=== PATIENT | female | born 1945 | race Caucasian/White ===

== ENCOUNTER → 2017-02-01 | Day surgery (SDC) | payer OTHER ==
[2017-01-12 10:04] VITALS: Ht 171.5 cm; Wt 63.6 kg
[~2017-02-01] VITALS: Ht 171.5 cm; Wt 63.6 kg
[~2017-02-01] MED LIST: 500ML BSS 0.3ML EPI 1:1000PF IRRIG ONE; ACETAMINOPHEN 325 MG TAB PO PRN; AMIT25TA9 PO; AMVISC PLUS 0.8ML SYRINGE INT OCU ONE; ASCO-63 PO; ASPCH81X PO; ATROPINE SULFATE 0.1 MG/ML 5ML SYR IV PRN; BSS FLUSH ONE; CRAN500C2 PO; CYAN100020 PO; EpHEDrine SULFATE INJ 50 MG/ML AMP IV PRN; EpINEphrine INJ 1MG/ML AMP 1 MG/ML AMP ONE; FAMO20TA9 PO; FOLI1TAB7 PO; GARL10007 PO; LACTATED RINGER'S 1000ML 500 ML IV SCH; LIDOCAINE 3.5% OPH GEL PER APPLICATION CHARGE ONE; LIDOCAINE HCL 1% MPF 2 ML VIAL ONE; LORA-741 PO; MIDAZOLAM HCL 1 MG/ML 2ML VIAL ONE; MISC1TAB PO; OCUCOAT 1 ML SOLN IO ONE; OMEG10007 PO; PHENYLEPHRINE HCL 10% OP SOLN PER DROP CHARGE OPL SCH; PHENYLEPHRINE HCL 10% OP SOLN PER DROP CHARGE OPR SCH; POVIDONE-IODINE OP SOLN 30 ML BTL ONE; PROPARACAINE 0.5% OP SOLN PER DROP CHARGE OPL SCH; RIZA10TA18 PO; SIMV40TA4 PO; TOBRAMYCIN/DEXAMETHASONE OPH OINT PER APPLN CHARGE ONE; TOPI100T20 PO; VALA500T60 PO; [UNRECOGNIZED DRUG - REMARK] SCH
[2017-02-01] MEDS: PHENYLEPHRINE HCL 2.5% OP SOLN PER DROP CHARGE OPL SCH ×2 (12:09→12:14)
[2017-02-01] MEDS: TROPICAMIDE 1% OP SOLN PER DROP CHARGE OPL SCH ×2 (12:10→12:15)
[2017-02-01] MEDS: CYCLOPENTOLATE HCL 1% OP SOLN PER DROP CHARGE OPL SCH ×2 (12:11→12:16)
[2017-02-01] MEDS: KETOROLAC 0.5% OP SOLN PER DROP CHARGE OPL SCH ×2 (12:12→12:17)
[2017-02-01] MEDS: GATIFLOXACIN OP SOLN PER DROP CHARGE OPL SCH ×2 (12:13→12:23)
--- NOTE | 2017-02-01 12:16 | History & Physical Bridge - [place] ---
H&P Re-Evaluation Bridge Note: I have examined the patient, reviewed the History & Physical and in the interval since the performance of the History & Physical I have noted the following changes of clinical significance: Diagnosis: Right Cataract Procedure: Right Cataract Removal with Lens Implant No changes noted
--- NOTE | 2017-02-01 13:28 | Discharge Instructions-SurgCtr ---
Discharge Instructions Date of Service Feb 01, 2017. Visit Reason for Visit: Cataract Right Eye Discharge Discharge Diagnosis / Problem: cataract Discharge Goals Goal(s): Improve function Activity Recommendations Activity Limitations: per Instructions/Follow-up section Anesthesia . Post Anesthesia Instructions: If you have had General Anesthesia or IV Sedation: * Do not drive today. * Resume driving when surgeon permits. * Do not make important decisions or sign legal documents today. * Call surgeon for: 1. Temperature elevations greater than 101 degrees F. 2. Uncontrollable pain. 3. Excessive bleeding. 4. Persistent nausea and vomiting. 5. Medication intolerance (nausea, vomiting or rash). * For nausea and vomiting use only clear liquids such as: tea, soda, bouillon until nausea subsides, then gradually increase diet as tolerated. * If you have any concerns or questions, call your surgeon's office. If physician is unavailable and it is an emergency, call 911 or go to the nearest emergency room. . Instructions / Follow-Up Instructions / Follow-Up ACTIVITY RECOMMENDATIONS: * No strenuous lifting, jogging or running for 4 days * No swimming or yard work for 1 week. * Limited bending is permitted, such as putting on shoes. RETURN TO SCHOOL/WORK: No work until seen by physician in office. MEDICATIONS: Resume previous medications unless instructed otherwise by your surgeon. This includes eye drops for glaucoma. Zymaxid/Gatifloxacin (kelly cap) - one drop every 2 hours until bedtime Nevanac/Ilevro/Prolensa/Ketorolac (villafuerte cap) - one drop every 4 hours until bedtime Prednisolone (white/pink cap, SHAKE WELL) - one drop every 2 hours until bedtime Starting tomorrow - all 3 drops every 4 hours until seen in the office Optive drops - as needed for discomfort SPECIAL CARE INSTRUCTIONS: * Wear eyeshield when sleeping, for four nights. * You may wear your own glasses or sunglasses while awake. * You may read or watch TV * You may shower and wash your face, but be gentle around the eye and pat dry. * Blurry vision and mild irritation are normal. * Call office if pain is more severe or vision becomes dark at . FOLLOW UP VISIT: Follow-up with Dr Whalen tomorrow. Diet Recommendations Home Diet: resume previous diet Procedures Procedures Performed: Right Eye Cataract Phacoemulsification With Intraocular Lens Implant Pending Studies Studies pending at discharge: no Medical Emergencies . Who to Call and When: Medical Emergencies: If at any time you feel your situation is an emergency, please call 911 immediately. . Non-Emergent Contact Non-Emergency issues call your: Benefits Consultant . . "Provider Documentation" section prepared by Jose Whalen.
[2017-02-01 13:30] VITALS: TEMP 36.7
--- NOTE | 2017-02-01 13:30 | [facility] Operative Report ---
Operative Report Date of Service Feb 01, 2017. Operative Report 1. PREOPERATIVE DIAGNOSIS: Cataract of the right eye. 2. POSTOPERATIVE DIAGNOSIS: Same. 3. PROCEDURE: Phacoemulsification with intraocular lens implantation of the right eye. SURGEON: Dr. Jose Whalen. ANESTHESIA: Topical Lidocaine gel, 1% Non- Preserved intracameral Lidocaine, and monitored intravenous sedation. INDICATIONS FOR THE PROCEDURE: The patient is a 71 - year-old female with a history of cataract of the right eye causing significant visual impairment. The details of the proposed procedure were explained to the patient who asked appropriate questions and following discussion of all risks, benefits and alternatives agreed to have the procedure done. 4. OPERATION AND FINDINGS: DESCRIPTION OF PROCEDURE: After informed consent was obtained, the patient was brought to the Operating Room at the [facility]. The patient was placed in a supine position and then the right eye was prepped and draped in the usual sterile fashion for intraocular surgery. A drop of topical Lidocaine gel was placed in the operative eye. A wire lid speculum was then placed in the fornices. A corneal paracentesis was then created temporally. The Non-Preserved Lidocaine was then instilled into the anterior chamber. The anterior chamber was then pressurized with viscoelastic. A 2.0 mm clear corneal incision was then created temporally. A cystotome was inserted into the anterior chamber and used to create a tear in the anterior lens capsule. This capsular tear was then used to create a small flap and the flap was dragged in a counterclockwise direction in order to create a continuous curvilinear capsulorrhexis. Hydrodissection was accomplished with balanced salt solution. Phacoemulsification of the lens nucleus was then performed in a standard [id number] technique. The phaco time was 28 seconds with an average power of 4 %. The remaining cortical material was removed using irrigation aspiration. The capsular bag was then filled with viscoelastic. A Kash [id number] +36.0 diopters lens was then loaded into the injector and injected into the capsular bag. The remaining viscoelastic was removed with the irrigation aspiration handpiece. The wound was hydrated and then checked and found to be watertight. Resure was used to assure a water tight incision. The intraocular pressure was checked and found to be adequate. The wire lid speculum was removed and the patient's face was cleaned and dried. TobraDex ointment was placed in the inferior fornix. The patient was discharged to the Recovery Room having tolerated the procedure well. There were no complications. The patient will be seen tomorrow in the office for follow-up. I attest to the content of the Intraoperative Record and any orders documented therein. Any exceptions are noted below.
[2017-02-01 13:58] VITALS: BP 130/84; PULSE 67; O2SAT 99
--- NOTE | 2017-02-01 13:58 | Anesthesia Progress Nt - [facility] ---
Anesthesia Post Op Note Date & Time Feb 01, 2017 at 13:57 Vital Signs Pain Intensity: 0 Vital Signs Past 12 Hours Date Time Temp Pulse Resp B/P Pulse Ox O2 Delivery O2 Flow Rate FiO2 02/01/17 13:30 36.7 70 16 145/85 96 Room Air 02/01/17 12:00 36.5 76 16 145/88 99 Room Air Notes Mental Status: alert / awake / arousable, participated in evaluation Pt Amnestic to Procedure: Yes Nausea / Vomiting: adequately controlled Pain: adequately controlled Airway Patency, RR, SpO2: stable & adequate BP & HR: stable & adequate Hydration State: stable & adequate Anesthetic Complications: no major complications apparent
== END | disposition home or self-care (01) ==
LOC: X.SURG 10:30
PROVIDERS: ATTEND Ophthalmology
DX: H26.9 Unspecified cataract (principal); H54.7 Unspecified visual loss; Z98.49 Cataract extraction status, unspecified eye; Z88.1 Allergy status to other antibiotic agents; Z88.2 Allergy status to sulfonamides

== ENCOUNTER → 2017-04-14 | Outpatient (CLI) | payer OTHER ==
[~2017-04-14] MED LIST changes: -500ML BSS 0.3ML EPI 1:1000PF IRRIG ONE; -ACETAMINOPHEN 325 MG TAB PO PRN; -AMVISC PLUS 0.8ML SYRINGE INT OCU ONE; -ATROPINE SULFATE 0.1 MG/ML 5ML SYR IV PRN; -BSS FLUSH ONE; -CRAN500C2 PO; -EpHEDrine SULFATE INJ 50 MG/ML AMP IV PRN; -EpINEphrine INJ 1MG/ML AMP 1 MG/ML AMP ONE; -FOLI1TAB7 PO; -LACTATED RINGER'S 1000ML 500 ML IV SCH; -LIDOCAINE 3.5% OPH GEL PER APPLICATION CHARGE ONE; -LIDOCAINE HCL 1% MPF 2 ML VIAL ONE; -MIDAZOLAM HCL 1 MG/ML 2ML VIAL ONE; -OCUCOAT 1 ML SOLN IO ONE; -PHENYLEPHRINE HCL 10% OP SOLN PER DROP CHARGE OPL SCH; -PHENYLEPHRINE HCL 10% OP SOLN PER DROP CHARGE OPR SCH; -POVIDONE-IODINE OP SOLN 30 ML BTL ONE; -PROPARACAINE 0.5% OP SOLN PER DROP CHARGE OPL SCH; -TOBRAMYCIN/DEXAMETHASONE OPH OINT PER APPLN CHARGE ONE; -[UNRECOGNIZED DRUG - REMARK] SCH
[2017-04-14 17:44] LABS: BASO % 1.4 %; BASO ABS # 0.09 K/uL (0-0.2); COMPLETE YES; EOS % 3.7 %; HEMATOCRIT 37.9 % (37-47); IG% 0.2 %; LYMPH ABS # 2.07 K/uL (1.2-3.4); MEAN CELL VOLUME 84.6 fL (80-100); MEAN CORPUSCULAR HEMOGLOBIN 26.8 pg (25-34); MEAN CORPUSCULAR HGB CONC 31.7 g/dl (32-36); MEAN PLATELET VOLUME 10.5 fL (7.4-10.4); MONO % 7.1 %; NEUT % 55.6 %; PLATELET COUNT 218 K/uL (130-400); RED BLOOD COUNT 4.48 M/uL (4.2-5.4); WHITE BLOOD COUNT 6.47 K/uL (4.8-10.8)
[2017-04-14 18:07] LABS: ALT/SGPT 27 U/L (12-78); AST/SGOT 18 U/L (15-37); BLOOD UREA NITROGEN 15 mg/dl (7-18); BUN/CREATININE RATIO 15.5 (10-20); CALCIUM 9.5 mg/dl (8.5-10.1); CARBON DIOXIDE 25 mmol/L (21-32); CHLORIDE 113 mmol/L (98-107); CHOLESTEROL 166 mg/dl (0-200); CREATININE 0.94 mg/dl (0.60-1.20); GLUCOSE 94 mg/dl (70-99); POTASSIUM 4.1 mmol/L (3.5-5.1); SODIUM 144 mmol/L (136-145)
[2017-04-14 18:18] LABS: ALB/GLOB RATIO 1.1 (0.9-2); ALKALINE PHOSPHATASE 37 U/L (45-117); CHOLESTEROL/HDL RATIO 2.6; HDL CHOLESTEROL 63 mg/dl; LDL CHOLESTEROL CALCULATED 81 mg/dl; TRIGLYCERIDES 111 mg/dl (0-150); VERY LOW DENSITY LIPOPROT CALC 22 mg/dl
== END | disposition home or self-care (01) ==
LOC: C.LABMFLN 14:05
PROVIDERS: ATTEND Family Medicine
DX: I10 Essential (primary) hypertension (principal); E78.00 Pure hypercholesterolemia, unspecified; E03.9 Hypothyroidism, unspecified

== ENCOUNTER → 2017-05-06 | Outpatient (CLI) | payer OTHER ==
--- NOTE | 2017-05-06 15:58 | MAMMOGRAPHY REPORT ---
BILATERAL DIGITAL SCREENING MAMMOGRAM WITH CAD: 05/06/2017 CLINICAL HISTORY: Routine screening. Patient has no complaints. TECHNIQUE: Current study was also evaluated with a Computer Aided Detection (CAD) system. Bilateral CC and MLO views were obtained. COMPARISON: Comparison is made to exams dated: 05/04/2016 mammogram, 04/21/2015 mammogram, 04/18/2014 m ammogram, 04/17/2013 mammogram, 04/14/2012 mammogram, and 04/13/2011 mammogram - [facility] enter. BREAST COMPOSITION: There are scattered areas of fibroglandular density in both breasts. FINDINGS: No suspicious masses, calcifications, or areas of architectural distortion are noted in ei ther breast. There has been no significant interval change compared to prior exams. Scattered bilater al benign-appearing calcifications are not significantly changed. Nodular asymmetry along the painter railroad car ior nipple line on the left cc view middle depth is stable compared to prior exams including the 2015 and 2014 exams. IMPRESSION: ACR BI-RADS CATEGORY 2: BENIGN There is no mammographic evidence of malignancy. A 1 year screening mammogram is recommended. The pa tient will receive written notification of the results. Approximately 10% of breast cancers are not detected with mammography. A negative mammographic report should not delay biopsy if a clinically suggestive mass is present. Keli Rodriguez M.D. /:05/06/2017 15:44:22 Director Dietetics Department: Jazzmine AVILEZ)(Linda), [facility] letter sent: Normal 1/2 BI-RADS Code: ACR BI-RADS Category 2: Benign
== END | disposition home or self-care (01) ==
LOC: C.MAMM 15:16
PROVIDERS: ATTEND Family Medicine
DX: Z12.31 Encounter for screening mammogram for malignant neoplasm of breast (principal)

== ENCOUNTER → 2018-05-10 | Outpatient (CLI) | payer OTHER ==
--- NOTE | 2018-05-11 08:11 | MAMMOGRAPHY REPORT ---
BILATERAL DIGITAL SCREENING MAMMOGRAM TOMOSYNTHESIS WITH CAD: 05/10/2018 CLINICAL HISTORY: Routine screening. Patient has no complaints. TECHNIQUE: The study was acquired using full field digital technology and interpreted from soft copy. 2D and Tomosynthesis (3D imaging) and was done in the CC and MLO projections. A C-view reconstructio n was then done. Current study was also evaluated with a Computer Aided Detection (CAD) system. COMPARISON: Comparison is made to exams dated: 05/06/2017 mammogram, 05/04/2016 mammogram, 04/21/2015 m ammogram, 04/18/2014 mammogram, 04/17/2013 mammogram, and 04/14/2012 mammogram - [facility] enter. BREAST COMPOSITION: There are scattered areas of fibroglandular density in both breasts. FINDINGS: No suspicious masses, calcifications, or areas of architectural distortion are noted in either breast . There has been no significant interval change compared to prior exams. Scattered bilateral benign-a ppearing calcifications are not significantly changed. IMPRESSION: There is no mammographic evidence of malignancy. A 1 year screening mammogram is recommended.( 019) The patient will receive written notification of the results. Approximately 10% of breast cancers are not detected with mammography. A negative mammographic report should not delay biopsy if a clinically suggestive mass is present. Keli Rodriguez M.D. /:05/10/2018 14:53:41 Staffing Executive: Princess Conner RT(Fritz)(M)(BD), [facility] letter sent: Normal 1/2 BI-RADS Code: ACR BI-RADS Category 2: Benign
== END | disposition home or self-care (01) ==
LOC: C.MAMM 14:28
PROVIDERS: ATTEND Family Medicine
DX: Z12.31 Encounter for screening mammogram for malignant neoplasm of breast (principal)

== ENCOUNTER 2020-07-28 08:47 | Inpatient (IN) ==
--- NOTE | 2020-07-14 09:23 | PAT Medication Instructions ---
Medication Instructions Date of Service July 14, 2020 Home Medications Medication Instructions Recorded rizatriptan 10 mg tablet 10 mg PO .COMPLEX PRN #12 tab MDD 3 01/31/20 lorazepam 0.5 mg tablet 0.5 mg PO BID PRN #180 tab 03/13/20 amitriptyline 25 mg tablet 25 mg PO HS #90 tab 04/28/20 simvastatin 40 mg tablet 40 mg PO HS #90 tab 04/28/20 valacyclovir 1 gram tablet 1,000 mg PO .COMPLEX #12 tab 06/04/20 topiramate 100 mg tablet 100 mg PO BID #180 tab 06/20/20 ascorbic acid (vitamin C) 500 mg tablet 500 mg PO QAM cranberry 500 mg capsule 500 mg PO QAM cyanocobalamin (vitamin B-12) 1,000 mcg tablet 1,000 mcg PO QAM garlic 1,000 mg capsule 1,000 mg PO QAM glucosamine 750 [id number] 2-C 30 mg-D3 1,000 unit-carlos 1 mg tablet 2 tab PO QAM omega-3 fatty acids-fish oil 360 mg-1,200 mg capsule 1 cap PO QAM prednisolone acetate 1 % eye drops,suspension 1 drops OP QAM famotidine 20 mg tablet 40 mg PO BID rizatriptan 10 mg tablet 10 mg PO .COMPLEX PRN #12 tab MDD lorazepam 0.5 mg tablet 0.5 mg PO BID PRN amitriptyline 25 mg tablet 25 mg PO HS simvastatin 40 mg tablet 40 mg PO HS valacyclovir 1 gram tablet 1,000 mg PO .COMPLEX topiramate 100 mg tablet 100 mg PO BID lisinopril 2.5 mg PO QAM melatonin 5 mg PO HS PRN STOP taking 2 weeks before surgery (or as soon as possible if surgery is within 2 weeks) cranberry 500 mg capsule 500 mg PO QAM garlic 1,000 mg capsule 1,000 mg PO QAM glucosamine 750 [id number]-hysgzo-[id number] 2-C 30 mg-D3 1,000 unit-carlos 1 mg tablet 2 tab PO QAM omega-3 fatty acids-fish oil 360 mg-1,200 mg capsule 1 cap PO QAM DO NOT take the morning of surgery ascorbic acid (vitamin C) 500 mg tablet 500 mg PO QAM cyanocobalamin (vitamin B-12) 1,000 mcg tablet 1,000 mcg PO QAM lisinopril 2.5 mg PO QAM Take morning of surgery With a small sip of water, OTHERWISE NOTHING TO EAT OR DRINK AFTER MIDNIGHT: prednisolone acetate 1 % eye drops,suspension 1 drops OP QAM famotidine 20 mg tablet 40 mg PO BID rizatriptan 10 mg tablet 10 mg PO .COMPLEX PRN (if needed) lorazepam 0.5 mg tablet 0.5 mg PO BID PRN (if needed) valacyclovir 1 gram tablet 1,000 mg PO .COMPLEX (if needed) topiramate 100 mg tablet 100 mg PO BID Take evening before surgery famotidine 20 mg tablet 40 mg PO BID rizatriptan 10 mg tablet 10 mg PO .COMPLEX PRN (if needed) lorazepam 0.5 mg tablet 0.5 mg PO BID PRN (if needed) amitriptyline 25 mg tablet 25 mg PO HS simvastatin 40 mg tablet 40 mg PO HS topiramate 100 mg tablet 100 mg PO BID melatonin 5 mg PO HS PRN (if needed) valacyclovir 1 gram tablet 1,000 mg PO .COMPLEX (if needed) Other Notes If you have any questions please call us at [phone] or [phone] or [phone] or [phone]
--- NOTE | 2020-07-15 14:07 | Anesthesiology Consultation ---
Date of Service July 15, 2020 Assessment & Plan (1) Encounter for pre-operative examination: Per assessment on 07/15: Travel screen negative. No known COVID-19 positive cont acts or current COVID-19 related symptoms. Surgeon arranging preop COVID testing (scheduled 07/23; [facility]). Awaiting results. - Patient goes by "Nakia" Chart Review Chart Review: Acceptable Risk for Surgery (pending surgeon-ordered PCP clearance) and Patient seen in Pre Admission Testing Teaching & Discussion Pre-Anesthesia Teaching/Discussion Notes: Instructed NPO after midnight before surgery,except medications with 15 cc of water. Medication instructions provided according to the PAT guidelines. History Surgery Operation Date: 07/28/20 12:25 Proposed Procedures p L2-L3 Decompression and Fusion, Spinal Cord Monitoring - Yohan Russo DO Height/Weight Height: 5 ft 5.5 in Weight: 65.8 kg Allergies Allergy/AdvReac Type Severity Reaction Status Date / Time ciprofloxacin Allergy Unknown Unknown Verified 07/09/20 11:22 Sulfa (Sulfonamide AdvReac Unknown Back Pain Verified 07/14/20 16:13 Antibiotics) Medications Home Medications Medication Instructions Recorded Confirmed Last Taken ascorbic acid (vitamin C) 500 mg 500 mg PO QAM tab 04/12/19 07/09/20 Unknown tablet cranberry 500 mg capsule 500 mg PO QAM cap 05/04/19 07/09/20 Unknown cyanocobalamin (vitamin B-12) 1,000 mcg PO QAM tab 05/04/19 07/09/20 Unknown 1,000 mcg tablet garlic 1,000 mg capsule 1,000 mg PO QAM 05/04/19 07/09/20 Unknown glucosamine 750 fh-prepsb-jqu 2-C 2 tab PO QAM tab 05/04/19 07/09/20 Unknown 30 mg-D3 1,000 unit-carlos 1 mg tablet omega-3 fatty acids-fish oil 360 1 cap PO QAM 05/04/19 07/09/20 Unknown mg-1,200 mg capsule prednisolone acetate 1 % eye 1 drops OP QAM ml 05/04/19 07/09/20 Unknown drops,suspension famotidine 20 mg tablet 40 mg PO BID tab 11/19/19 07/09/20 Unknown rizatriptan 10 mg tablet 10 mg PO .COMPLEX PRN #12 tab MDD 3 01/31/20 07/09/20 Unknown lorazepam 0.5 mg tablet 0.5 mg PO BID PRN #180 tab 03/13/20 07/09/20 Unknown amitriptyline 25 mg tablet 25 mg PO HS #90 tab 04/28/20 07/09/20 Unknown simvastatin 40 mg tablet 40 mg PO HS #90 tab 04/28/20 07/09/20 Unknown valacyclovir 1 gram tablet 1,000 mg PO .COMPLEX #12 tab 06/04/20 07/09/20 Unknown topiramate 100 mg tablet 100 mg PO BID #180 tab 06/20/20 07/09/20 Unknown lisinopril 2.5 mg PO QAM 07/09/20 07/09/20 Unknown melatonin 5 mg PO HS PRN 07/09/20 07/09/20 Unknown Past Medical History Medical History GERD (gastroesophageal reflux disease) History of anxiety History of depression History of nephrolithiasis Hypercholesterolemia Hypertension Lumbar stenosis Migraines Osteoarthritis Recurrent cold sores Scoliosis Exercise / Class Metabolic Activity III < 4 Walking/Shop/Light housework Past Family History Family History Mother Pulmonary fibrosis Unknown Headache migraine headaches Cancer Father COPD (chronic obstructive pulmonary disease) Asthma Son No problems noted. Past Surgical History Surgical History History of cataract surgery History of colonoscopy History of corneal transplant History of esophagogastroduodenoscopy (EGD) History of tooth extraction Past Anesthesia History No Hx of Anesthesia Complications and No Family Hx of Anesthesia Complications History of PONV No Hx of PONV and No Hx of Motion Sickness Social History Smoking Status: Former smoker Do You Dip or Chew Tobacco: No Smoking End Date: Quit 12 years Hx Alcohol Use: Yes Alcohol type: wine alcohol intake frequency: a few times a month Hx Substance Use: No substance use type: does not use Review of Systems Patient denies chest pain, shortness of breath, fever, chills, cough, wheezing, palpitations. Physical Exam Vital Signs VITALS BP 125/80 P 84 TEMP 97.7 SP02 100%RA RESP 16 PHYSICAL Full neck and c-spine range of motion. Full TMJ range of motion. TMD 3 finger breaths Mallampati Score 3 Dentition: missing molars, + cap (upper left front/side tooth) Lungs: clear throughout to auscultation Cardiac: regular rate and rhythm, no murmurs noted Spine: normal Carotid arteries: negative bruit Extremities: no edema Testing Laboratory Results 07/15/20 14:36 07/15/20 14:36 PT 10.8 Seconds (9.0-12.0) 07/15/20 14:36 INR 1.0 (0.9-1.1) 07/15/20 14:36 APTT 27.6 Seconds (21.0-31.0) 07/15/20 14:36 Urine Color Yellow 07/15/20 14:36 Urine Appearance Clear (Clear) 07/15/20 14:36 Urine pH 6.5 (4.5-7.5) 07/15/20 14:36 Ur Specific [place] 1.012 (1.000-1.030) 07/15/20 14:36 Urine Protein Negative (Negative) 07/15/20 14:36 Urine Glucose (UA) Negative (Negative) 07/15/20 14:36 Urine Ketones Negative (Negative) 07/15/20 14:36 Urine Nitrite Negative (Negative) 07/15/20 14:36 Ur Leukocyte Esterase Negative (Negative) 07/15/20 14:36 Blood Type O Positive 07/15/20 14:36 Antibody Screen NEGATIVE 07/15/20 14:36 Electrocardiogram Date: 07/15/20 NSR at 77bpm. RBBB. unconfirmed report. Chest X-Ray Date: 07/15/20 FINDINGS: The cardiac and mediastinal contours are normal. There is no evidence of focal pulmonary consolidation. There is no evidence of failure. No pleural effusions are visualized.[There is a mildly prominent left cardiophrenic angle fat pad. IMPRESSION: No active disease in the chest.
--- NOTE | 2020-07-15 15:53 | XRay Report ---
XR chest Pre-admission PA/Lat CLINICAL HISTORY: Preoperative chest COMPARISON STUDY: No previous studies for comparison. FINDINGS: The cardiac and mediastinal contours are normal. There is no evidence of focal pulmonary co nsolidation. There is no evidence of failure. No pleural effusions are visualized.[There is a mildly prominent left cardiophrenic angle fat pad. IMPRESSION: No active disease in the chest. ACT 112: Negative or not required by law. Electronically signed by: Jaquan Huggins M.D. 07/15/2020 3:51 PM
[2020-07-15 16:09] LABS: Basophils # (auto) 0.06 K/uL (0-0.2); Basophils % (auto) 0.9 %; Eosinophils # (auto) 0.11 K/uL (0-0.5); Eosinophils % (auto) 1.6 %; Hematocrit (blood only) 43.6 % (37-47); Hemoglobin 14.2 g/dL (12.0-16.0); Immature Granulocytes # (auto) 0.01 K/uL (0.00-0.02); Immature Granulocytes % (auto) 0.1 %; Lymphocytes # (auto) 1.85 K/uL (1.2-3.4); Lymphocytes % (auto) 26.6 %; Mean Corpuscular Hemoglobin 32.1 pg (25-34); Mean Corpuscular Hgb Conc 32.6 g/dL (32-36); Mean Corpuscular Volume 98.4 fL (80-100); Mean Platelet Volume 10.7 fL (7.4-10.4); Monocytes # (auto) 0.39 K/uL (0.11-0.59); Monocytes % (auto) 5.6 %; Neutrophils # (auto) 4.54 K/uL (1.4-6.5); Neutrophils % (auto) 65.2 %; Platelet Count 248 K/uL (130-400); RDW Coefficient of Variation 12.8 % (11.5-14.5); RDW Standard Deviation 46.3 fL (36.4-46.3); Red Blood Count 4.43 M/uL (4.2-5.4); White Blood Count 6.96 K/uL (4.8-10.8)
[2020-07-15 16:10] LABS: Appearance Urine Clear (Clear); Bilirubin Urine Negative (Negative); Blood Urine Negative (Negative); Color Urine Yellow; Glucose Urine UA Negative (Negative); Ketones Urine Negative (Negative); Leukocyte Esterase Urine Negative (Negative); Nitrite Urine Negative (Negative); Protein Urine Negative (Negative); Specific Gravity Urine 1.012 (1.000-1.030); Urobilinogen Urine Negative (Negative); pH Urine 6.5 (4.5-7.5)
[2020-07-15 16:20] LABS: BUN Creatinine Ratio 19.7 (10-20); Calcium 9.6 mg/dl (8.5-10.1); Creatinine Clr Calc Pharmacy 46.2 ml/min; Est GFR (African American) 65.9; Est GFR (Non-African American) 56.8
[2020-07-15 16:21] LABS: Partial Thromboplastin Time 27.6 Seconds (21.0-31.0); Prothrombin Time 10.8 Seconds (9.0-12.0)
--- NOTE | 2020-07-16 14:21 | Electrocardiogram Report ---
Test Reason : Blood Pressure : / mmHG Vent. Rate : 077 BPM Atrial Rate : 077 BPM P-R Int : 158 ms QRS Dur : 132 ms QT Int : 428 ms P-R-T Axes : 073 033 069 degrees QTc Int : 484 ms Normal sinus rhythm Right bundle branch block Abnormal ECG No previous ECGs available Confirmed by Emanuel Godoy ([id number]) on 07/16/2020 2:21:02 PM Referred By: Yohan Russo Confirmed By:Emanuel Godoy
[~2020-07-28 08:47] MED LIST changes: +ACETAMINOPHEN 500 MG TAB PO SCH; -AMIT25TA9 PO; -ASCO-63 PO; -ASPCH81X PO; +CEFAZOLIN 1000MG 1,000 MG/7.5 ML SYR IV SCH; -CYAN100020 PO; +CeleBREX 200 MG CAP PO SCH; -FAMO20TA9 PO; +GABAPENTIN 300 MG CAP PO SCH; -GARL10007 PO; -LORA-741 PO; +LR 15ML/HR IV SCH; -MISC1TAB PO; -OMEG10007 PO; -RIZA10TA18 PO; -SIMV40TA4 PO; -TOPI100T20 PO; -VALA500T60 PO
[2020-07-28] MEDS ORDERED: ATROPINE SULFATE 0.1 MG/ML 10ML SYR IV PRN (09:09)
[2020-07-28] MEDS ORDERED: ePHEDrine sulfate 50 MG/ML AMP IV PRN (09:09)
[2020-07-28] MEDS ORDERED: LABETALOL HCL IV 5 MG/ML 20ML IV PRN (09:09)
[2020-07-28] MEDS ORDERED: HYDROmorphone INJ 1 MG/ML SYRINGE IV PRN ×2 (09:09→13:52)
[2020-07-28] MEDS ORDERED: PHENYLEPHRINE 100MCG/ML 5ML SYR IV PRN (09:09)
[2020-07-28] MEDS ORDERED: ONDANSETRON INJ 2 MG/ML 2 ML VIAL IV PRN ×2 (09:09→13:52)
[2020-07-28] MEDS ORDERED: MEPERIDINE HCL 25 MG/ML CARP/VIAL IV PRN (09:09)
[2020-07-28] MEDS ORDERED: fentaNYL citrate 100 MCG/2 ML VIAL IV PRN (09:09)
[2020-07-28] MEDS ORDERED: MIDAZOLAM HCL 1 MG/ML 2ML VIAL ONE (09:21)
[2020-07-28] MEDS ORDERED: fentaNYL citrate 100 MCG/2 ML VIAL ONE (09:22)
--- NOTE | 2020-07-28 09:56 | History & Physical Bridge Note ---
Date of Service July 28, 2020 History & Physical Bridge Note I have examined the patient, reviewed the History & Physical and in the interval since the performance of the History & Physical I have noted the following changes of clinical significance: no changes noted
--- NOTE | 2020-07-28 09:57 | History & Physical Report ---
Date of Service July 28, 2020 Assessment & Plan (1) Neurogenic claudication due to lumbar spinal stenosis: Admission and Anticipated Discharge Date Admission Date: L2-L3 decompression fusion History of Present Illness Chief Complaint: Back and right leg pain Primary Care Provider: Yen Frost MD This is a 74-year-old female that presents with chronic persistent back and leg pain. After failing a course of nonoperative care is here for surgical intervention. Allergies Allergy/AdvReac Type Severity Reaction Status Date / Time ciprofloxacin Allergy Unknown Unknown Verified 07/28/20 09:22 Sulfa (Sulfonamide AdvReac Unknown Back Pain Verified 07/28/20 09:22 Antibiotics) Home Medications Home Medications Medication Instructions Recorded Confirmed Type ascorbic acid (vitamin C) 500 mg 500 mg PO QAM tab 04/12/19 07/28/20 History tablet cranberry 500 mg capsule 500 mg PO QAM cap 05/04/19 07/28/20 History cyanocobalamin (vitamin B-12) 1,000 mcg PO QAM tab 05/04/19 07/28/20 History 1,000 mcg tablet garlic 1,000 mg capsule 1,000 mg PO QAM 05/04/19 07/28/20 History glucosamine 750 [id number]-kpv 2-C 2 tab PO QAM tab 05/04/19 07/28/20 History 30 mg-D3 1,000 unit-carlos 1 mg tablet omega-3 fatty acids-fish oil 360 1 cap PO QAM 05/04/19 07/28/20 History mg-1,200 mg capsule prednisolone acetate 1 % eye 1 drops OP QAM ml 05/04/19 07/28/20 History drops,suspension famotidine 20 mg tablet 40 mg PO BID tab 11/19/19 07/28/20 History lorazepam 0.5 mg tablet 0.5 mg PO BID PRN #180 tab 03/13/20 07/28/20 Rx amitriptyline 25 mg tablet 25 mg PO HS #90 tab 04/28/20 07/28/20 Rx simvastatin 40 mg tablet 40 mg PO HS #90 tab 04/28/20 07/28/20 Rx valacyclovir 1 gram tablet 1,000 mg PO .COMPLEX #12 tab 06/04/20 07/21/20 Rx topiramate 100 mg tablet 100 mg PO BID #180 tab 06/20/20 07/28/20 Rx lisinopril 2.5 mg PO QAM 07/09/20 07/28/20 History melatonin 5 mg PO HS PRN 07/09/20 07/28/20 History rizatriptan 10 mg tablet 10 mg PO .COMPLEX PRN #12 tab MDD 2 07/17/20 07/28/20 Rx tramadol 50 mg tablet 50 mg PO Q8H PRN #30 tab 07/21/20 07/28/20 Rx acetaminophen [Tylenol Extra 1,000 mg PO Q6H PRN 07/28/20 07/28/20 History Strength] bisacodyl [Dulcolax (bisacodyl)] 5 mg PO DAILY PRN 07/28/20 07/28/20 History Past Med/Surg History Medical History (Updated 07/28/20 @ 09:57 by Yohan Russo DO) GERD (gastroesophageal reflux disease) History of anxiety History of depression History of nephrolithiasis Hypercholesterolemia Hypertension Lumbar stenosis Migraines Osteoarthritis Recurrent cold sores Right bundle branch block Scoliosis Surgical History History of cataract surgery History of colonoscopy History of corneal transplant History of esophagogastroduodenoscopy (EGD) History of tooth extraction Family History Mother Pulmonary fibrosis Unknown Headache migraine headaches Cancer Father COPD (chronic obstructive pulmonary disease) Asthma Son No problems noted. Social History Smoking Status: Former smoker Smoking End Date: Quit 12 years; Second Hand Exposure: Yes; Do You Dip or Chew Tobacco: No; Tobacco Cessation Education Requested by Patient: No Hx Alcohol Use: Yes Alcohol type: wine Alcohol Intake Frequency Comment: occassionally Hx Substance Use: No Preferred Language: Divehi Communication Ability: Effective Visual Impairment: No Limitations Hearing Ability: Normal Dry Transfer Man Required: No Beliefs That Will Affect Care: None marital status: Current Living Situation: Spouse current occupational status: retired Feels Safe at Home: Yes Safety Concerns: Feels Safe At This Time caffeine: Yes Dental Care, Regularly: Yes Physical Activity Frequency: Does not Exercise Seatbelt Use: always Sunscreen Use: Yes Assistive Devices: Cane and Glasses Physical Exam Physical Exam: Patient is alert and oriented neurologically intact. Heart regular rate and rhythm. Lungs clear to auscultation.
[2020-07-28] MEDS ORDERED: BUPIVACAINE/EPINEPHRINE 0.25% 1:200,000 30 ML VIAL ONE (10:11)
[2020-07-28] MEDS ORDERED: BACITRACIN INJ 50,000 UNIT VIAL ONE (10:11)
[2020-07-28] MEDS ORDERED: PROPOFOL IV EMULSION 10 MG/ML 20 ML VIAL IV ONE (10:41)
[2020-07-28] MEDS ORDERED: ROCURONIUM BROMIDE 10 MG/ML 5 ML VIAL IV ONE (10:41)
[2020-07-28] MEDS ORDERED: LIDOCAINE HCL 2% 2 ML VIAL/AMP(20MG/ML) INFIL ONE (10:41)
[2020-07-28] MEDS ORDERED: FLOSEAL HEMOSTATIC MATRIX 10ML TOP ONE ×2 (10:43→11:29)
[2020-07-28] MEDS ORDERED: NEOSTIGMINE METHYLSULFATE 1 MG/ML 10ML VIAL ONE (11:21)
[2020-07-28] MEDS ORDERED: GLYCOPYRROLATE 0.2 MG/ML VIAL ONE (11:21)
[2020-07-28] MEDS ORDERED: ONDANSETRON INJ 2 MG/ML 2 ML VIAL ONE (11:21)
[2020-07-28] MEDS ORDERED: DEXAMETHASONE SOD INJ 4 MG/ML VIAL ONE (11:21)
[2020-07-28] MEDS ORDERED: ePHEDrine sulfate 50 MG/ML SYR ONE (11:27)
--- NOTE | 2020-07-28 11:40 | Operative Report ---
Post Operative Report Pre & Post Diagnosis Operation Date: 07/28/20 10:05 Pre-Op Diagnosis: Lumbar Spinal Stenosis with Neurogenic Claudication Post-Op Diagnosis: Lumbar Spinal Stenosis with Neurogenic Claudication I identified the patient and participated in the time-out.: Yes Procedure Operation Date: 07/28/20 10:05 Actual Procedures #1 lumbar decompression with bilateral medial facetectomy and foraminotomies L2- 3. #2 posterior spinal fusion L2-3. #3 placement posterior instrumentation L2- 3. #4 interbody fusion L2-3. #5 placement peek cage and 7 x 22 mm at L2-3. #6 placement locally harvested morselized autograft in the posterior lateral gutters. #7 placement infuse collagen sponge plan master graft in the posterior lateral gutters and ostial amp interbody space. Surgeon Yohan Russo, Fiscal Agent Kanika Sanchez Estimated Blood Loss 100 Findings Consistent with Post-Op Diagnosis Specimens None Indications This is a 74-year-old female who presents with above-mentioned diagnosis after failing course of nonoperative care is here for the above-mentioned procedure. Description of Procedure Patient was met with identified informed consent obtained. Patient was then taken to the operative suite underwent the patient placed in a prone position on the Ronaldo table on top of the Perry frame. All bony prominences well-padded eyes inspected to ensure no external pressure placed upon them. This point the lumbar spine was prepped and draped in normal sterile fashion. Sharp dissection with the assistance of Bovie cautery was performed down to and exposing the lamina transverse processes of L2-3. From caudal cephalad fashion complete laminectomy of L2 was performed including bilateral medial facetectomies and foraminotomies to address all neural compression and stenosis. Pedicle screws were then placed in L2 and L3 bilaterally with assistance of fluoroscopy and the process marti placed. Believe a transforaminal approach on the right a complete discectomy of L2-3 was performed endplates curetted to subcortical being bone and a 7 x 22 mm peek cage filled with osteo-bone graft tapped in position. The rods were then locked into final position bilaterally. Transverse processes of L2 and L3 burred to subcortical leading bone. Infuse collagen sponge master graft local autograft was placed in the posterior lateral gutters. 15 round ROSALIND drain inserted. Incision was then closed with 1 Vicryl the fascia 2-0 Vicryl subcutaneously and 4 Monocryl for final skin closure. Steri-Strip sterile dressings placed. Patient will continue PACU stable condition. Please note spinal cord monitoring was utilized that the procedure no changes noted. Lastly Kanika Sanchez was present at the entire surgery involved in patient positioning complex portions of the surgery and final skin closure. I attest to the content of the Intraoperative Record and any orders documented therein. Any exceptions are noted below.
--- NOTE | 2020-07-28 12:20 | Fluoroscopy Report ---
FL lumbar spine 2-3V CLINICAL HISTORY: L2-L3 DECOMPRESSION AND FUSION COMPARISON STUDY: MRI dated 06/19/2020 FLUOROSCOPY TIME: 21 seconds. NUMBER OF FLUOROSCOPIC IMAGES: 2 FINDINGS: 2 intraoperative fluoroscopic spot images reveal postsurgical changes of an L2-3 discectomy and interbody fusion. There is posterior pedicle screw fixation. This should be noted that exact lev el numbering is difficult due to the limited [id number]. IMPRESSION: Postsurgical changes of an L2-3 discectomy and fusion. ACT 112: Negative or not required by law. Electronically signed by: Jaquan Huggins M.D. 07/28/2020 12:19 PM
--- NOTE | 2020-07-28 13:14 | Anesthesiology Progress Note ---
Date of Service July 28, 2020 Anesthesia Post Procedure Vital Signs Vital Signs: Temp Pulse Pulse Resp BP BP Pulse Ox 07/28/20 13:10 36.3 C L 52 L 18 122/61 96 07/28/20 13:00 52 L 18 108/57 L 99 07/28/20 12:50 54 L 18 139/64 99 07/28/20 12:40 58 L 18 155/61 H 100 07/28/20 12:30 54 L 18 138/66 100 07/28/20 12:20 68 18 93/76 L 100 07/28/20 12:10 82 18 131/81 100 07/28/20 12:05 36.4 C L 92 H 15 155/85 H 100 07/28/20 09:52 36.7 C 62 18 132/83 97 Pain Intensity Right Back: Pain Intensity: 4 Transfer of Care Handoff Completed per policy Notes Mental Status: alert / awake / arousable Patient Amnestic to Procedure: Yes Nausea / Vomiting: adequately controlled Pain: adequately controlled and improving with treatment Airway Patency, RR, SpO2: stable & adequate BP & HR: stable & adequate Hydration State: stable & adequate Anesthetic Complications: no major complications apparent and Pt Satisfied with anesthetic care Notes: The patient is resting comfortably. When aroused she states that she has an "ouchie" over the surgical site. Her vitals are stable. Her rhythm strip showed the same pattern that she had preoperatively, but the patient is now back in sinus rhythm.
[2020-07-28] MEDS: LACTATED RINGER'S 1,000 ML IV SCH (13:35)
[2020-07-28] MEDS ORDERED: ALUMINUM/MAGNESIUM SUSP 30 ML UDC PO PRN (13:52)
[2020-07-28] MEDS ORDERED: DO NOT ADMINISTER PNEUMOCOCCAL VACCINE PRN (13:52)
[2020-07-28] MEDS ORDERED: NALOXONE HCL 0.4 MG/1 ML VIAL/CARP IV PRN (13:52)
[2020-07-28] MEDS ORDERED: SOD PHOSPHATE/SOD BIPHOSPHATE ENEMA 132 ML BTL PR PRN (13:52)
[2020-07-28] MEDS ORDERED: MAGNESIUM HYDROXIDE SUSP 30 ML UDC PO PRN (13:52)
[2020-07-28] MEDS ORDERED: RIZATRIPTAN BENZOATE 10 MG TAB PO PRN ×2 (13:52→14:14)
[2020-07-28] MEDS ORDERED: PROMETHAZINE HCL 12.5 MG in SODIUM CHLORIDE 0.9% 50 ML IV PRN (13:52)
[2020-07-28] MEDS ORDERED: ACETAMINOPHEN 1,000 MG/100 ML VIAL IV PRN (13:52)
[2020-07-28] MEDS ORDERED: ACETAMINOPHEN 500 MG TAB PO PRN (13:52)
[2020-07-28] MEDS ORDERED: DO NOT ADMINISTER FLU VACCINE PRN (13:52)
[2020-07-28] MEDS ORDERED: FAMOTIDINE 20 MG TAB PO PRN (13:52)
[2020-07-28] MEDS ORDERED: ONDANSETRON 4 MG OD TAB PO PRN (13:52)
[2020-07-28] MEDS ORDERED: METOCLOPRAMIDE HCL INJ 5 MG/ML 2 ML VIAL IV PRN (13:52)
[2020-07-28] MEDS ORDERED: bisacodyL 10 MG SUPP PR PRN (13:52)
[2020-07-28] MEDS ORDERED: HYDROmorphone INJ 0.5 MG/0.5 ML SYR IV PRN (13:52)
[2020-07-28] MEDS ORDERED: LORazepam 0.5 MG/1 ML VIAL IV PRN (13:52)
[2020-07-28] MEDS ORDERED: LORazepam 0.5 MG TAB PO PRN (13:52)
[2020-07-28] MEDS ORDERED: MELATONIN 3 MG TAB PO PRN (14:00)
[2020-07-28] MEDS: OXYCODONE HCL IR 5 MG TAB (IMMEDIATE RELEASE) PO PRN ×2 (14:46→21:12)
--- NOTE | 2020-07-28 15:17 | Hospitalist Consultation ---
Date of Consultation July 28, 2020 Assessment & Plan (1) Neurogenic claudication due to lumbar spinal stenosis: S/p lumbar decompression & fusion L2-[address] Russo on 07/28. No complications per operative report. EBL was 100 mL. - At risk for expected acute blood loss anemia due to surgery - Monitor hgb - Post-operative care per surgical team (2) Hypertension: BP is 125/80 after surgery. - Continue home lisinopril (3) Hypercholesterolemia: - Continue simvastatin (4) Subclinical hypothyroidism: Not on any thyroid replacement for this. - Monitor (5) Headache, migraine: No present headache. - Continue amitriptyline & topiramate - Tylenol PRN (6) Depression: - Continue amitriptyline & topiramate - Continue lorazepam PRN (7) DVT prophylaxis: SCDs - Heparin per primary team History of Present Illness Reason for Consultation: Medical management Attending Physician: Yohan Russo, DO History of Present Illness Ms. Guerin is a 74yo F w/ hx of HTN, HLD, and migraine who presents as a routine medical consult after a lumbar decompression & fusion L2-3. She is doing well after the operation. She is not experiencing much pain at this time, though she has some in her back. Otherwise has no complaints, though she is still quite sleepy. Per the operative note, there were no major complications. Allergies Allergy/AdvReac Type Severity Reaction Status Date / Time ciprofloxacin Allergy Unknown Unknown Verified 07/28/20 09:22 Sulfa (Sulfonamide AdvReac Unknown Back Pain Verified 07/28/20 09:22 Antibiotics) Home Medications Home Medications Medication Instructions Recorded Confirmed Type ascorbic acid (vitamin C) 500 mg 500 mg PO QAM tab 04/12/19 07/28/20 History tablet cranberry 500 mg capsule 500 mg PO QAM cap 05/04/19 07/28/20 History cyanocobalamin (vitamin B-12) 1,000 mcg PO QAM tab 05/04/19 07/28/20 History 1,000 mcg tablet garlic 1,000 mg capsule 1,000 mg PO QAM 05/04/19 07/28/20 History glucosamine 750 [id number]-[id number] 2-C 2 tab PO QAM tab 05/04/19 07/28/20 History 30 mg-D3 1,000 unit-carlos 1 mg tablet omega-3 fatty acids-fish oil 360 1 cap PO QAM 05/04/19 07/28/20 History mg-1,200 mg capsule prednisolone acetate 1 % eye 1 drops OP QAM ml 05/04/19 07/28/20 History drops,suspension famotidine 20 mg tablet 40 mg PO BID tab 11/19/19 07/28/20 History lorazepam 0.5 mg tablet 0.5 mg PO BID PRN #180 tab 03/13/20 07/28/20 Rx amitriptyline 25 mg tablet 25 mg PO HS #90 tab 04/28/20 07/28/20 Rx simvastatin 40 mg tablet 40 mg PO HS #90 tab 04/28/20 07/28/20 Rx valacyclovir 1 gram tablet 1,000 mg PO .COMPLEX #12 tab 06/04/20 07/21/20 Rx topiramate 100 mg tablet 100 mg PO BID #180 tab 06/20/20 07/28/20 Rx lisinopril 2.5 mg PO QAM 07/09/20 07/28/20 History melatonin 5 mg PO HS PRN 07/09/20 07/28/20 History rizatriptan 10 mg tablet 10 mg PO .COMPLEX PRN #12 tab MDD 2 07/17/20 07/28/20 Rx tramadol 50 mg tablet 50 mg PO Q8H PRN #30 tab 07/21/20 07/28/20 Rx acetaminophen [Tylenol Extra 1,000 mg PO Q6H PRN 07/28/20 07/28/20 History Strength] bisacodyl [Dulcolax (bisacodyl)] 5 mg PO DAILY PRN 07/28/20 07/28/20 History Patient History Medical History GERD (gastroesophageal reflux disease) History of anxiety History of depression History of nephrolithiasis Hypercholesterolemia Hypertension Lumbar stenosis Migraines Osteoarthritis Recurrent cold sores Right bundle branch block Scoliosis Surgical History History of cataract surgery History of colonoscopy History of corneal transplant History of esophagogastroduodenoscopy (EGD) History of tooth extraction Family History Mother Pulmonary fibrosis Unknown Headache migraine headaches Cancer Father COPD (chronic obstructive pulmonary disease) Asthma Son No problems noted. 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 Beliefs That Will Affect Care: None marital status: Current Living Situation: Spouse current occupational status: retired Feels Safe at Home: Yes Safety Concerns: Feels Safe At This Time caffeine: Yes Dental Care, Regularly: Yes Physical Activity Frequency: Does not Exercise Seatbelt Use: always Sunscreen Use: Yes Assistive Devices: Cane and Glasses Review of Systems Review of Systems: All systems reviewed & are unremarkable except as noted in HPI & below Physical Exam Constitutional: WD/WN, vitals as above Eyes: EOM intact bilaterally; no conjunctival abnormality ENMT: external ear and nose normal, oropharynx normal Neck: trachea midline, no thyromegaly normal visual inspection Respiratory: normal respiratory effort, lungs clear to auscultation no respiratory distress Cardiovascular: RRR, no murmur, no edema Gastrointestinal (Abdomen): Inspection/Auscultation: abdomen normal to inspection; abdomen not distended Musculoskeletal: no cyanosis or clubbing, extremities motor strength 5/5 Spine: + thoracic spine abnormal to inspection (Surgical dressing and drain in place) Skin: no rashes, warm and dry Neurologic: moves all extremities and awake Psychiatric: Orientation: alert, oriented to person and cooperative Results & Data Results & Data ([facility]) Vital Signs (Past 12 Hours) Vital Signs Temp Pulse Pulse Resp BP BP Pulse Ox 07/28/20 14:46 59 L 16 126/78 95 07/28/20 14:24 56 L 16 128/73 97 07/28/20 13:37 36.4 C L 54 L 12 128/64 96 07/28/20 13:15 52 L 14 119/55 L 94 07/28/20 13:10 36.3 C L 52 L 18 122/61 96 07/28/20 13:00 52 L 18 108/57 L 99 07/28/20 12:50 54 L 18 139/64 99 07/28/20 12:40 58 L 18 155/61 H 100 07/28/20 12:30 54 L 18 138/66 100 07/28/20 12:20 68 18 93/76 L 100 07/28/20 12:10 82 18 131/81 100 07/28/20 12:05 36.4 C L 92 H 15 155/85 H 100 07/28/20 09:52 36.7 C 62 18 132/83 97 PG Care Time/CCT Total # of Minutes Spent Total Time Spent with Patient: Total time spent is greater than 50% in coordination of care (as documented) at patient's floor/unit and/or counseling patient: Coding Level of Care Code 30240 Inpt Consult Level 4 Diagnoses Neurogenic claudication due to lumbar spinal stenosis M48.062 Hypertension I10 Hypercholesterolemia E78.00 Subclinical hypothyroidism E03.9 Headache, migraine G43.909 Depression F32.9 DVT prophylaxis Z29.9
--- NOTE | 2020-07-28 17:06 | Electrocardiogram Report ---
Test Reason : Blood Pressure : / mmHG Vent. Rate : 062 BPM Atrial Rate : 062 BPM P-R Int : 162 ms QRS Dur : 126 ms QT Int : 468 ms P-R-T Axes : 061 027 040 degrees QTc Int : 475 ms Normal sinus rhythm Right bundle branch block Abnormal ECG When compared with ECG of 15-JUL-2020 14:35, No significant change was found Confirmed by Ismael Arriaga ([id number]) on 07/28/2020 5:06:30 PM Referred By: Yohan Russo Confirmed By:Grayson Arriaga
[2020-07-28] MEDS: CEFAZOLIN 1000MG 1,000 MG/7.5 ML SYR IV SCH (17:49)
[2020-07-28] MEDS: AMITRIPTYLINE HCL 25 MG TAB PO SCH (20:57)
[2020-07-28] MEDS: FAMOTIDINE 40 MG TABLET PO SCH (20:57)
[2020-07-28] MEDS: DOCUSATE SODIUM/SENNA 50/8.6MG TAB PO SCH (20:58)
[2020-07-28] MEDS: SIMVASTATIN 40 MG TAB PO SCH (20:58)
[2020-07-28] MEDS: TOPIRAMATE 100 MG TAB PO SCH (20:59)
[2020-07-29] MEDS: LACTATED RINGER'S 1,000 ML IV SCH (00:48)
[2020-07-29] MEDS: CEFAZOLIN 1000MG 1,000 MG/7.5 ML SYR IV SCH (02:14)
[2020-07-29] MEDS: OXYCODONE HCL IR 5 MG TAB (IMMEDIATE RELEASE) PO PRN ×4 (04:09→19:36)
[2020-07-29] MEDS: POLYETHYLENE (MIRALAX) 17 GM PACK PO SCH ×3 (05:34→17:44)
[2020-07-29 06:14] LABS: Basophils # (auto) 0.01 K/uL (0-0.2); Basophils % (auto) 0.1 %; Eosinophils # (auto) 0.01 K/uL (0-0.5); Eosinophils % (auto) 0.1 %; Hematocrit (blood only) 36.9 % (37-47); Hemoglobin 12.8 g/dL (12.0-16.0); Immature Granulocytes # (auto) 0.01 K/uL (0.00-0.02); Immature Granulocytes % (auto) 0.1 %; Lymphocytes # (auto) 1.76 K/uL (1.2-3.4); Mean Corpuscular Hgb Conc 34.7 g/dL (32-36); Mean Corpuscular Volume 97.9 fL (80-100); Mean Platelet Volume 10.8 fL (7.4-10.4); Monocytes # (auto) 1.15 K/uL (0.11-0.59); Monocytes % (auto) 11.1 %; Neutrophils # (auto) 7.44 K/uL (1.4-6.5); Neutrophils % (auto) 71.6 %; Platelet Count 213 K/uL (130-400); RDW Coefficient of Variation 12.9 % (11.5-14.5); RDW Standard Deviation 46.3 fL (36.4-46.3); Red Blood Count 3.77 M/uL (4.2-5.4); White Blood Count 10.38 K/uL (4.8-10.8)
[2020-07-29 06:43] LABS: BUN Creatinine Ratio 15.1 (10-20); Creatinine Clr Calc Pharmacy 52.1 ml/min; Est GFR (African American) 76.1; Est GFR (Non-African American) 65.6; Potassium 3.8 mmol/L (3.5-5.1)
[2020-07-29] MEDS: CYANOCOBALAMIN 500 MCG TABLET (VITAMIN B-12) PO SCH (08:33)
[2020-07-29] MEDS: ASCORBIC ACID 500 MG TAB PO SCH (08:33)
[2020-07-29] MEDS: FAMOTIDINE 40 MG TABLET PO SCH ×2 (08:34→20:34)
[2020-07-29] MEDS: prednisoLONE acetate 1% OP SUSP 5 ML BTL OP SCH (08:34)
[2020-07-29] MEDS ORDERED: NON-FORMULARY MEDICATION (Cranberry 500 MG) PO SCH (09:00)
[2020-07-29] MEDS: TOPIRAMATE 100 MG TAB PO SCH ×2 (09:35→20:34)
[2020-07-29] MEDS ORDERED: DEXAMETHASONE SOD PHOSPHATE 6 MG in SYRINGE 0 ML IV SCH (11:30)
[2020-07-29] MEDS: GABAPENTIN 100 MG CAP PO SCH ×2 (13:12→20:34)
--- NOTE | 2020-07-29 13:45 | Hospitalist Progress Note ---
Date of Service July 29, 2020 Assessment & Plan (1) Neurogenic claudication due to lumbar spinal stenosis: S/p lumbar decompression & fusion L2-[address] Russo on 07/28. No complications per operative report. EBL was 100 mL. - Post-operative care per surgical team - Working with PT today. (2) Hypertension: BP is 115/75 after surgery. - Continue home lisinopril (3) Hypercholesterolemia: - Continue simvastatin (4) Subclinical hypothyroidism: Not on any thyroid replacement for this. - Monitor (5) Headache, migraine: No present headache. - Continue amitriptyline & topiramate - Tylenol PRN (6) Depression: - Continue amitriptyline & topiramate - Continue lorazepam PRN (7) DVT prophylaxis: SCDs - Heparin per primary team Given medical stability, Hospital Medicine team will sign off. Please re-consult with any questions or concerns. Thank you for letting us assist in the care of this patient! Admission and Anticipated Discharge Date Admission Date: July 28, 2020 Subjective Reports back pain today, but overall doing well. Reports no fevers/chills, chest pain, shortness of breath, abdominal pain, nausea, or vomiting. Physical Exam Constitutional: WD/WN, vitals as above Eyes: EOM intact bilaterally; no conjunctival abnormality ENMT: external ear and nose normal, oropharynx normal Neck: trachea midline, no thyromegaly normal visual inspection Respiratory: normal respiratory effort, lungs clear to auscultation no respiratory distress Cardiovascular: RRR, no murmur, no edema Gastrointestinal (Abdomen): Inspection/Auscultation: abdomen normal to inspection; abdomen not distended Musculoskeletal: no cyanosis or clubbing, extremities motor strength 5/5 Spine: + thoracic spine abnormal to inspection (Surgical dressing and drain in place) Skin: no rashes, warm and dry Neurologic: moves all extremities and awake Psychiatric: Orientation: alert, oriented to person and cooperative Results & Data Results & Data ([facility]) Vital Signs (Past 12 Hours) Vital Signs Temp Pulse Resp BP Pulse Ox 07/29/20 11:11 36.8 C 73 18 115/75 95 07/29/20 07:45 36.3 C L 69 16 114/67 98 07/29/20 03:54 36.4 C L 73 14 118/69 94 PG Care Time/CCT Total # of Minutes Spent Total Time Spent with Patient: Total time spent is greater than 50% in coordination of care (as documented) at patient's floor/unit and/or counseling patient: Coding Level of Care Code 21892 Subseq Hosp Care Lvl 2 Diagnoses Neurogenic claudication due to lumbar spinal stenosis M48.062 Hypertension I10 Hypercholesterolemia E78.00 Subclinical hypothyroidism E03.9 Headache, migraine G43.909 Depression F32.9 DVT prophylaxis Z29.9
--- NOTE | 2020-07-29 15:15 | Orthopedic Progress Note ---
Date of Service July 29, 2020 Assessment & Plan (1) Neurogenic claudication due to lumbar spinal stenosis: Admission and Anticipated Discharge Date Admission Date: July 28, 2020 At this time we will continue physical therapy I will add Neurontin in the touch of Decadron to her pain regiment. May take time for her nerve to respond from the procedure. We will continue with physical therapy as tolerated. Subjective Patient complaining of significant back pain she is also noting continued right anterior thigh pain Physical Exam Physical Exam: On exam she is now in bed. She did tolerate physical therapy. She has reasonable strength testing. Results & Data ([facility]) Vital Signs (Past 12 Hours) Vital Signs Temp Pulse Resp BP Pulse Ox 07/29/20 14:58 36.6 C 80 16 128/76 97 07/29/20 11:11 36.8 C 73 18 115/75 95 07/29/20 07:45 36.3 C L 69 16 114/67 98 07/29/20 03:54 36.4 C L 73 14 118/69 94
[2020-07-29] MEDS: SIMVASTATIN 40 MG TAB PO SCH (20:34)
[2020-07-29] MEDS: DOCUSATE SODIUM/SENNA 50/8.6MG TAB PO SCH (20:34)
[2020-07-29] MEDS: AMITRIPTYLINE HCL 25 MG TAB PO SCH (20:34)
[2020-07-29] MEDS: TRAMADOL HCL 50 MG TABLET PO PRN (21:42)
[2020-07-30] MEDS: POLYETHYLENE (MIRALAX) 17 GM PACK PO SCH ×5 (00:03→23:51)
[2020-07-30] MEDS: OXYCODONE HCL IR 5 MG TAB (IMMEDIATE RELEASE) PO PRN ×3 (00:03→20:03)
[2020-07-30] MEDS: prednisoLONE acetate 1% OP SUSP 5 ML BTL OP SCH (08:04)
[2020-07-30] MEDS: TOPIRAMATE 100 MG TAB PO SCH ×2 (08:04→20:03)
[2020-07-30] MEDS: GABAPENTIN 100 MG CAP PO SCH ×3 (08:04→20:04)
[2020-07-30] MEDS: FAMOTIDINE 40 MG TABLET PO SCH ×2 (08:04→20:04)
[2020-07-30] MEDS: ASCORBIC ACID 500 MG TAB PO SCH (08:04)
[2020-07-30] MEDS: CYANOCOBALAMIN 500 MCG TABLET (VITAMIN B-12) PO SCH (08:04)
[2020-07-30] MEDS: DEXAMETHASONE SOD PHOSPHATE 6 MG in SYRINGE 0 ML IV SCH (08:05)
[2020-07-30] MEDS: TRAMADOL HCL 50 MG TABLET PO PRN (11:08)
--- NOTE | 2020-07-30 15:04 | Orthopedic Progress Note ---
Date of Service July 30, 2020 Assessment & Plan (1) Neurogenic claudication due to lumbar spinal stenosis: Admission and Anticipated Discharge Date Admission Date: July 28, 2020 This time continue physical therapy begin weaning her from her narcotic requirem ents anticipate discharge home tomorrow. Subjective Back pain improving leg pain improving. Physical Exam Physical Exam: Patient is in the chair at the bedside. She has good strength testing. Results & Data ([facility]) Vital Signs (Past 12 Hours) Vital Signs Temp Pulse Resp BP Pulse Ox 07/30/20 08:09 36.6 C 99 H 16 120/69 94
[2020-07-30] MEDS: SIMVASTATIN 40 MG TAB PO SCH (20:03)
[2020-07-30] MEDS: AMITRIPTYLINE HCL 25 MG TAB PO SCH (20:03)
[2020-07-30] MEDS: DOCUSATE SODIUM/SENNA 50/8.6MG TAB PO SCH (20:04)
[2020-07-31] MEDS: POLYETHYLENE (MIRALAX) 17 GM PACK PO SCH ×3 (06:19→18:48)
[2020-07-31] MEDS: TOPIRAMATE 100 MG TAB PO SCH ×2 (08:30→21:21)
[2020-07-31] MEDS: FAMOTIDINE 40 MG TABLET PO SCH ×2 (08:30→21:21)
[2020-07-31] MEDS: ASCORBIC ACID 500 MG TAB PO SCH (08:30)
[2020-07-31] MEDS: CYANOCOBALAMIN 500 MCG TABLET (VITAMIN B-12) PO SCH (08:30)
[2020-07-31] MEDS: prednisoLONE acetate 1% OP SUSP 5 ML BTL OP SCH (08:31)
[2020-07-31] MEDS: DEXAMETHASONE SOD PHOSPHATE 6 MG in SYRINGE 0 ML IV SCH (08:31)
[2020-07-31] MEDS: GABAPENTIN 100 MG CAP PO SCH ×3 (08:31→21:21)
--- NOTE | 2020-07-31 10:25 | Orthopedic Progress Note ---
Date of Service July 31, 2020 Assessment & Plan (1) Neurogenic claudication due to lumbar spinal stenosis: Admission and Anticipated Discharge Date Admission Date: July 28, 2020 Patient is still quite painful regarding the lumbar spine. Leg symptoms neal bashir are improving. She still not had a bowel movement but does note positive flatus. I will monitor her for the next 24 hours and anticipate discharge home tomorrow. Subjective Patient complaining mostly of back pain leg pain is markedly improved. Physical Exam Physical Exam: Patient is in a chair at the bedside. She has good strength testing. Does appear to be uncomfortable. Results & Data ([facility]) Vital Signs (Past 12 Hours) Vital Signs Temp Pulse Resp BP BP Pulse Ox 07/31/20 07:12 36.8 C 85 16 114/69 95 07/30/20 23:23 37.0 C 84 14 110/69 96
[2020-07-31] MEDS: ALUMINUM/MAGNESIUM SUSP 50 ML, DiphenhydrAMINE Syrup 125 MG, LIDOCAINE HCL 2% VISCOUS 4... PO PRN ×2 (16:03→21:26)
[2020-07-31] MEDS: DOCUSATE SODIUM/SENNA 50/8.6MG TAB PO SCH (21:21)
[2020-07-31] MEDS: AMITRIPTYLINE HCL 25 MG TAB PO SCH (21:21)
[2020-07-31] MEDS: SIMVASTATIN 40 MG TAB PO SCH (21:21)
[2020-07-31] MEDS: TRAMADOL HCL 50 MG TABLET PO PRN (21:25)
[2020-08-01] MEDS: POLYETHYLENE (MIRALAX) 17 GM PACK PO SCH ×2 (00:13→05:53)
[2020-08-01] MEDS: prednisoLONE acetate 1% OP SUSP 5 ML BTL OP SCH (08:32)
[2020-08-01] MEDS: CYANOCOBALAMIN 500 MCG TABLET (VITAMIN B-12) PO SCH (08:34)
[2020-08-01] MEDS: ASCORBIC ACID 500 MG TAB PO SCH (08:34)
[2020-08-01] MEDS: FAMOTIDINE 40 MG TABLET PO SCH (08:34)
[2020-08-01] MEDS: GABAPENTIN 100 MG CAP PO SCH (08:34)
[2020-08-01] MEDS: TOPIRAMATE 100 MG TAB PO SCH (08:34)
[2020-08-01] MEDS: ALUMINUM/MAGNESIUM SUSP 50 ML, DiphenhydrAMINE Syrup 125 MG, LIDOCAINE HCL 2% VISCOUS 4... PO PRN (08:46)
--- NOTE | 2020-08-01 10:38 | Discharge Summary ---
Date of Service August 01, 2020 Admission HPI Per Admitting Provider This is a 74-year-old female that presents with chronic persistent back and leg pain. After failing a course of nonoperative care is here for surgical intervention. Principal Diagnosis Lumbar spinal stenosis with radiculopathy Discharge Data Allergies Allergy/AdvReac Type Severity Reaction Status Date / Time ciprofloxacin Allergy Unknown Unknown Verified 07/28/20 09:22 Sulfa (Sulfonamide AdvReac Unknown Back Pain Verified 07/28/20 09:22 Antibiotics) Consultations 07/28/20 13:52 Consult Case Management - Discharge Planning Routine 07/28/20 14:01 Consult Hospitalist Routine Procedures Performed Operation Date: 07/28/20 10:05 Actual Procedures p L2-L3 Decompression and Fusion, Interbody Cage L2-L3, Placement of Bone Morphogenetic Protein, Spinal Cord Monitoring(Not Applicable) - Yohan Russo DO Ordered Studies 07/28/20 10:05 FL fluoroscopy <1hr Routine FL lumbar spine 2-3V Routine Hospital Course (1) Neurogenic claudication due to lumbar spinal stenosis: Patient underwent lumbar decompression fusion tolerated so was taken to orthopedic for postoperative. Postop day 1 to begin therapy progressed to postop day #2 and 3 ROSALIND drain decreasing probably. Pain steadily improved. Bowels working well in the last day and subsequently discharged home. Discharge orders instructions were on the chart for further review. Total Time Total Time Spent Total Time Spent (In Minutes): 20 minutes Discharge Plan Discharge Items Patient Disposition: Home - Self-Care Reason For Visit: Connective Tissue and Disc Stenosis of Interverteb Discharge Diagnosis: Lumbar spinal stenosis with radiculopathy Activity: As commented below Non-emergency contact: Primary Care Provider Call non-emergency contact if: you have any medication questions Follow-up/Referrals: Yen Frost MD [Primary Care Provider] - Diet: Regular Addtl Attending Provider Instructions: ACTIVITY RECOMMENDATIONS: SELF CARE INSTRUCTIONS AFTER THORACIC/LUMBAR FUSIONS 1. You may walk to your tolerance. It is good exercise for your legs and back. Expect some back and intermittent leg aches and pains. 2. You may perform "counter-top" level activities (make a sandwich, kasey with a project, etc.). 3. No bending or lifting of more than 10 pounds or back twisting of any nature (roll like a log when turning in bed). 4. You may ride in a car for 20-30 minutes at a time. No driving until after your first visit with your doctor. 5. Frequent changes of position and restricting sitting to 30 minutes at a time will help limit the amount of back spasms and stiffness you may experience. 6. You may discontinue the use of ambulatory aids (cane, crutches, etc.) once your strength and confidence allow. 7. You may fine dining server the shower and let water strike your incision when you arrive home at least once daily. Do not take a tub bath, sit in a hot tub or go into a swimming pool until after your first recheck in the office. SPECIAL CARE INSTRUCTIONS: VERY IMPORTANT TO READ AND REVIEW A. Your surgical incision has been closed with a cosmetic suture under the skin that will dissolve in about 6 weeks. In 14 days, you can use a pair of clean scissors and cut the suture that is left outside of the skin at the ends of your incision. 1. The small skin tapes can be removed 7 days after surgery if they have not fallen off by that point. 2. You may keep the wound open to air as much as possible to promote healing after post-op day number 5 unless told otherwise by your doctor. 3. If you think the wound looks like it is becoming infected (redness or worsening drainage) and/or you are experiencing fever, chill or worsening back pain and muscle spasms, contact the office so that we may evaluate you as soon as possible. B. Complications are uncommon, but please contact us if you have any signs or symptoms of: 1. wound infection (fever higher than 102.5 degrees F, redness, separation of wound, drainage, or increasing pain from the incision) 2. blood clots in legs (pain, swelling, redness and warmth in legs) 3. urinary tract infection (fever higher than 102.5 degrees F, burning upon urination or increased frequency of urination) 4. nerve problems (inability to walk on your toes or heels, numbness, loss of bowel or bladder control) 5. any other symptoms that concern you C. Please call the office at if you have any concerns or questions about your operation or recovery. D. No smoking! Smoking drastically decreases the chance of a solid fusion. E. Do not take any anti-inflammatory medications (Indocin, Advil, Motrin, Aspirin, Naprosyn, etc.) as these may inhibit the chance of a solid fusion. Tylenol is okay to take for pain. MANAGING PAIN AFTER SPINAL SURGERY 1. Narcotic medication is intended for short-term use and will be provided for surgical pain. Surgical pain usually lasts for a period of 4-6 weeks. Narcotic medication includes Percocet, Vicodin, Darvocet, Tylenol #3 or Lortab. 2. Longer-term pain is more appropriately treated with non-narcotic medication such as Tylenol ES. 3. Muscle spasm is not appropriately treated with narcotics. Muscle relaxers such as Soma, Flexeril or Skelaxin can be used along with Tylenol ES. 4. Remember that we all live with some "aches and pains". This is not unusual or uncommon after an injury or as we get older. a. Back pain is expected and may include muscle spasms for 4 to 6 weeks after surgery. The pain should gradually improve. If the pain worsens for no apparent reason, please contact the office. b. Intermittent leg pain may also be experienced and should not be concerned about unless it worsens for no apparent reason. If so, please contact the office. 5. We will provide appropriate medication within the normal guidelines of their prescribed use. We will also be very cautious and aware of potential abuse and extended duration of patients' medication needs. a. Pain medications are for your comfort and to assist with sleep and rest so that the tissue can heal. They are not provided in order to return to normal activity and should not be used through the day. To do so or worsening pain at night can result from ongoing tissue damage and development of tolerance to the prescribed medicine. 6. Please allow 2-3 days to process refills. Prescriptions will not be mailed but must be picked up at the office. FOLLOW UP VISIT: Keep your scheduled follow-up appointment. Any questions, please call the office at . Pending Studies at Discharge: No Stand-Alone Forms: My [email or web address], Smoking Cessation Medications and DC Order Prescriptions: New oxycodone 5 mg tablet 5 mg PO Q6H PRN (Reason: pain, severe) Qty: 20 RF: 0 gabapentin 100 mg Capsule 100 mg PO TID Qty: 90 RF: 2 Continued lorazepam 0.5 mg tablet 0.5 mg PO BID PRN (Reason: anxiety) Qty: 180 RF: 0 amitriptyline 25 mg tablet 25 mg PO HS Qty: 90 RF: 1 simvastatin 40 mg tablet 40 mg PO HS Qty: 90 RF: 1 valacyclovir 1 gram tablet 1,000 mg PO .COMPLEX Qty: 12 RF: 3 topiramate 100 mg tablet 100 mg PO BID Qty: 180 RF: 3 rizatriptan 10 mg tablet 10 mg PO .COMPLEX MDD 2 PRN (Reason: migraine headache) Qty: 12 RF: 1 tramadol 50 mg tablet 50 mg PO Q8H PRN (Reason: pain) Qty: 30 RF: 0 ascorbic acid (vitamin C) 500 mg tablet 500 mg PO QAM RF: 0 prednisolone acetate 1 % drops,suspension 1 drops OP QAM RF: 0 famotidine 20 mg tablet 40 mg PO BID RF: 0 garlic 1,000 mg capsule 1,000 mg PO QAM RF: 0 cyanocobalamin (vitamin B-12) 1,000 mcg tablet 1,000 mcg PO QAM RF: 0 omega-3 fatty acids-fish oil [Fish Oil] 360-1,200 mg capsule 1 cap PO QAM RF: 0 cranberry 500 mg capsule 500 mg PO QAM RF: 0 Wfgkeowj-Tdbnfw-YKH with vit D 750-30-1,000-1 qd-mz-tukp-mg tablet 2 tab PO QAM RF: 0 melatonin 5 mg Tablet 5 mg PO HS PRN (Reason: Insomnia) RF: 0 lisinopril 2.5 mg tablet 2.5 mg PO QAM RF: 0 acetaminophen [Tylenol Extra Strength] 500 mg Tablet 1,000 mg PO Q6H PRN (Reason: Pain) RF: 0 bisacodyl [Dulcolax (bisacodyl)] 5 mg Tablet,Delayed Release (Dr/Ec) 5 mg PO DAILY PRN (Reason: Constipation) RF: 0 Discharge Orders: Discharge Order (Routine); Ordered 08/01/20 Ordered By: Yohan Russo Admission Data Admit Date/Time: 07/28/20 12:36 Attending Provider: Yohan Russo Admit Provider: Yohan Russo Primary Care Provider: Yen Frost Other Providers: Kishor Tinajero Other Interventions: Discharge Summary Assessment (RN) Last Done: 08/01/20 10:34
== END 2020-08-01 12:12 | disposition home or self-care (01) | DRG 455 ==
LOC: ASU 08:47 → 3E 12:36

== ENCOUNTER 2021-06-15 08:48 | Inpatient (IN) ==
--- NOTE | 2021-06-01 13:57 | PAT Medication Instructions ---
Medication Instructions Date of Service June 01, 2021 Home Medications Medication Instructions Recorded valacyclovir 1 gram tablet 1,000 mg PO .COMPLEX #12 tab 06/04/20 topiramate 100 mg tablet 100 mg PO BID #180 tab 12/23/20 lorazepam 0.5 mg tablet 0.5 mg PO BID PRN #180 tab 03/17/21 simvastatin 40 mg tablet 40 mg PO HS #90 tab 05/04/21 rizatriptan 10 mg tablet 10 mg PO .COMPLEX PRN #12 tab MDD 2 05/24/21 gabapentin 100 mg capsule 100 mg PO TID #60 cap 05/26/21 ascorbic acid (vitamin C) 500 mg tablet 500 mg PO QAM cyanocobalamin (vitamin B-12) 1,000 mcg tablet 1,000 mcg PO QAM garlic 1,000 mg capsule 1,000 mg PO QAM glucosamine 750 ya-pbadnp-xos 2-C 30 mg-D3 1,000 unit-carlos 1 mg tablet (Evkksapduil-Jnhwafqefuf-IOI + vitD) 2 tab PO QAM omega-3 fatty acids-fish oil 360 mg-1,200 mg capsule (Fish Oil) 1 cap PO QAM prednisolone acetate 1 % eye drops,suspension 1 drops OP QAM famotidine 20 mg tablet 40 mg PO BID valacyclovir 1 gram tablet 1,000 mg PO .COMPLEX lisinopril 2.5 mg tablet 2.5 mg PO QAM melatonin 5 mg tablet 5 mg PO HS PRN alendronate 70 mg tablet (Fosamax) 70 mg PO .COMPLEX topiramate 100 mg tablet 100 mg PO BID lorazepam 0.5 mg tablet 0.5 mg PO BID PRN acetaminophen 500 mg tablet (Tylenol Extra Strength) 1,000 mg PO Q5H PRN ibuprofen 200 mg tablet (Motrin IB) 400 mg PO Q6H PRN simvastatin 40 mg tablet 40 mg PO HS rizatriptan 10 mg tablet 10 mg PO .COMPLEX PRN gabapentin 100 mg capsule 100 mg PO TID lactobacillus combination no.4 3 billion cell capsule (Probiotic) 3,000 mmu cells PO QAM Continue as directed alendronate 70 mg tablet (Fosamax) 70 mg PO .COMPLEX (continue as normal unless told otherwise by surgeon/prescriber) ASK your surgeon for instructions ibuprofen 200 mg tablet (Motrin IB) 400 mg PO Q6H PRN STOP taking 2 weeks before surgery (or as soon as possible if surgery is within 2 weeks) garlic 1,000 mg capsule 1,000 mg PO QAM glucosamine 750 lq-qnoiob-brh 2-C 30 mg-D3 1,000 unit-carlos 1 mg tablet (Kbojcmyqlhg-Qlxxaogeczp-NCE + vitD) 2 tab PO QAM omega-3 fatty acids-fish oil 360 mg-1,200 mg capsule (Fish Oil) 1 cap PO QAM DO NOT take the morning of surgery ascorbic acid (vitamin C) 500 mg tablet 500 mg PO QAM cyanocobalamin (vitamin B-12) 1,000 mcg tablet 1,000 mcg PO QAM lisinopril 2.5 mg tablet 2.5 mg PO QAM lactobacillus combination no.4 3 billion cell capsule (Probiotic) 3,000 mmu cells PO QAM Take morning of surgery With a small sip of water, OTHERWISE NOTHING TO EAT OR DRINK AFTER MIDNIGHT: prednisolone acetate 1 % eye drops,suspension 1 drops OP QAM famotidine 20 mg tablet 40 mg PO BID valacyclovir 1 gram tablet 1,000 mg PO .COMPLEX (if needed) topiramate 100 mg tablet 100 mg PO BID lorazepam 0.5 mg tablet 0.5 mg PO BID PRN (if needed) acetaminophen 500 mg tablet (Tylenol Extra Strength) 1,000 mg PO Q5H PRN (okay to take up to 4 hours prior to surgery if needed) rizatriptan 10 mg tablet 10 mg PO .COMPLEX PRN (if needed) gabapentin 100 mg capsule 100 mg PO TID Take evening before surgery famotidine 20 mg tablet 40 mg PO BID valacyclovir 1 gram tablet 1,000 mg PO .COMPLEX (if needed) melatonin 5 mg tablet 5 mg PO HS PRN topiramate 100 mg tablet 100 mg PO BID lorazepam 0.5 mg tablet 0.5 mg PO BID PRN (if needed) acetaminophen 500 mg tablet (Tylenol Extra Strength) 1,000 mg PO Q5H PRN (if needed) simvastatin 40 mg tablet 40 mg PO HS rizatriptan 10 mg tablet 10 mg PO .COMPLEX PRN (if needed) gabapentin 100 mg capsule 100 mg PO TID Other Notes If you have any questions please call us at [phone] or [phone] or [phone] or [phone]
--- NOTE | 2021-06-02 13:54 | Anesthesiology Consultation ---
Date of Service June 02, 2021 Assessment & Plan (1) Encounter for pre-operative examination: - COVID screening: Per assessment on 06/02: Travel screen negative, no known COVID-19 positive contacts or current COVID-19 related symptoms. Patient vaccin ated. Surgeon arranging preop COVID testing. Awaiting results. - S/P L2-3 decompression/fusion (07/28/20): Grade view 1, MAC#3, ETT 7.0 at [facility] Chart Review Chart Review: Acceptable Risk for Surgery (pending surgeon-ordered PCP clearance) and Patient seen in Pre Admission Testing Teaching & Discussion Pre-Anesthesia Teaching/Discussion Notes: Instructed NPO after midnight before surgery,except medications with 15 cc of water. Medication instructions provided according to the PAT guidelines. History Surgery Operation Date: 06/16/21 07:45 Proposed Procedures p L3-L4 Decomrpession Fusion, L2-L3 Hardware Removal, Spinal Cord Monitoring - Yohan Russo, Height/Weight Height: 5 ft 6 in Weight: 62.8 kg Allergies Allergy/AdvReac Type Severity Reaction Status Date / Time ciprofloxacin Allergy Unknown Unknown Verified 06/01/21 10:12 Sulfa (Sulfonamide AdvReac Unknown Back Pain Verified 06/01/21 10:12 Antibiotics) Medications Home Medications Medication Instructions Recorded Confirmed Last Taken ascorbic acid (vitamin C) 500 mg 500 mg PO QAM tab 04/12/19 06/01/21 07/27/20 10:00 tablet cyanocobalamin (vitamin B-12) 1,000 mcg PO QAM tab 05/04/19 06/01/21 07/27/20 10:00 1,000 mcg tablet garlic 1,000 mg capsule 1,000 mg PO QAM 05/04/19 06/01/21 2 Weeks Ago ~07/14/20 glucosamine 750 as-wafjiw-jzb 2-C 2 tab PO QAM tab 05/04/19 06/01/21 2 Weeks Ago 30 mg-D3 1,000 unit-carlos 1 mg ~07/14/20 tablet (Xtpjhmihbbl-Hwnfxoiiayk-RTZ + vitD) omega-3 fatty acids-fish oil 360 1 cap PO QAM 05/04/19 06/01/21 2 Weeks Ago mg-1,200 mg capsule (Fish Oil) ~07/14/20 prednisolone acetate 1 % eye 1 drops OP QAM ml 05/04/19 06/01/21 07/28/20 08:00 drops,suspension famotidine 20 mg tablet 40 mg PO BID tab 11/19/19 06/01/21 07/28/20 08:00 valacyclovir 1 gram tablet 1,000 mg PO .COMPLEX #12 tab 06/04/20 06/01/21 Unknown lisinopril 2.5 mg tablet 2.5 mg PO QAM 07/09/20 06/01/21 07/27/20 10:00 melatonin 5 mg tablet 5 mg PO HS PRN 07/09/20 06/01/21 07/27/20 21:00 alendronate 70 mg tablet (Fosamax) 70 mg PO .COMPLEX tab 11/18/20 06/01/21 Unknown topiramate 100 mg tablet 100 mg PO BID #180 tab 12/23/20 06/01/21 Unknown lorazepam 0.5 mg tablet 0.5 mg PO BID PRN #180 tab 03/17/21 06/01/21 Unknown acetaminophen 500 mg tablet 1,000 mg PO Q5H PRN tab 03/30/21 06/01/21 Unknown (Tylenol Extra Strength) ibuprofen 200 mg tablet (Motrin IB) 400 mg PO Q6H PRN tab 03/30/21 06/01/21 Unknown simvastatin 40 mg tablet 40 mg PO HS #90 tab 05/04/21 06/01/21 Unknown rizatriptan 10 mg tablet 10 mg PO .COMPLEX PRN #12 tab MDD 2 05/24/21 06/01/21 Unknown gabapentin 100 mg capsule 100 mg PO TID #60 cap 05/26/21 06/01/21 Unknown lactobacillus combination no.4 3 3,000 mmu cells PO QAM 06/01/21 06/01/21 Unknown billion cell capsule (Probiotic) Past Medical History Medical History Chronic low back pain GERD (gastroesophageal reflux disease) History of nephrolithiasis Hypercholesterolemia Hypertension Lumbar stenosis Migraines Osteoarthritis Recurrent cold sores Scoliosis Thyroid nodule Under surveillance Exercise / Class Metabolic Activity III < 4 Walking/Shop/Light housework (uses cane) Past Family History Family History Mother Pulmonary fibrosis Unknown Headache migraine headaches Cancer Father COPD (chronic obstructive pulmonary disease) Asthma Son Family history of reaction to anesthesia SLOW TO WAKE UP Past Surgical History Surgical History History of back surgery L2-3 decompression/fusion (07/28/20): Grade view 1, MAC#3, ETT 7.0 at [facility] History of cataract surgery Right History of cataract surgery Left History of colonoscopy History of corneal transplant R/L (2016) History of esophagogastroduodenoscopy (EGD) History of hip surgery Right ([place]) History of tooth extraction Past Anesthesia History No Hx of Anesthesia Complications and No Family Hx of Anesthesia Complications (except son with PONV) History of PONV No Hx of PONV and No Hx of Motion Sickness Social History Smoking Status: Former smoker Do You Dip or Chew Tobacco: No Smoking End Date: Quit 10-15 years ago Hx Alcohol Use: Yes Alcohol type: wine alcohol intake frequency: a few times a month Hx Substance Use: No substance use type: does not use Review of Systems Patient denies chest pain, shortness of breath, dyspnea on exertion, fever, chills, cough, wheezing, palpitations. Physical Exam Vital Signs VITALS BP 137/81 P 87 TEMP 98.5 SP02 96%RA RESP 16 PHYSICAL Full cervical extension range of motion. Full TMJ range of motion. TMD 3 finger breaths Mallampati Score 3 (small oral opening) Dentition: several missing molars, + crown Lungs: clear throughout to auscultation Cardiac: regular rate and rhythm, no murmurs noted Spine: normal Carotid arteries: negative bruit Extremities: no edema Lab Results Anesthesia Preop Results Results Anesthesia Widget: WBC 5.98 K/uL (4.8-10.8) 05/19/21 Hgb 13.5 g/dL (12.0-16.0) 05/19/21 Hct 42.1 % (37-47) 05/19/21 Plt 274 K/uL (130-400) 05/19/21 Na 141 mmol/L (136-145) 05/19/21 K 4.1 mmol/L (3.5-5.1) 05/19/21 Cl 113 mmol/L (98-107) H 05/19/21 CO2 26 mmol/L (21-32) 05/19/21 BUN 17 mg/dl (7-18) 05/19/21 Creat 0.77 mg/dl (0.6-1.2) 05/19/21 Glucose Level 86 mg/dl (70-99) 05/19/21 PT 10.4 Seconds (9.0-12.0) 06/02/21 PTT 26.3 Seconds (21.0-31.0) 06/02/21 INR 1.0 (0.9-1.1) 06/02/21 Urine Color Yellow 06/02/21 Urine Appearance Clear (Clear) 06/02/21 Urine pH 6.5 (4.5-7.5) 06/02/21 Urine Specific [place] 1.013 (1.000-1.030) 06/02/21 Urine Protein Negative (Negative) 06/02/21 Urine Glucose (UA) Negative (Negative) 06/02/21 Urine Ketones Negative (Negative) 06/02/21 Urine Blood Negative (Negative) 06/02/21 Urine Nitrite Negative (Negative) 06/02/21 Urine Bilirubin Negative (Negative) 06/02/21 Urine Urobilinogen Negative (Negative) 06/02/21 Urine Leukocyte Esterase Negative (Negative) 06/02/21 Blood Type O Positive 06/02/21 Antibody Screen NEGATIVE 06/02/21 Testing Electrocardiogram Date: 07/28/20 Normal sinus rhythm at 62 bpm. RBBB. Chest X-Ray Date: 07/15/20 FINDINGS: The cardiac and mediastinal contours are normal. There is no evidence of focal pulmonary consolidation. There is no evidence of failure. No pleural effusions are visualized.[There is a mildly prominent left cardiophrenic angle fat pad. IMPRESSION: No active disease in the chest.
[~2021-06-15 08:48] MED LIST changes: -CEFAZOLIN 1000MG 1,000 MG/7.5 ML SYR IV SCH; -LR 15ML/HR IV SCH; +ceFAZolin 1000MG 1,000 MG/7.5 ML SYR IV SCH
[2021-06-15] MEDS ORDERED: LIDOCAINE 2% 2 ML VIAL/AMP(20MG/ML) INFIL ONE (08:55)
[2021-06-15] MEDS ORDERED: ONDANSETRON INJ 2 MG/ML 2 ML VIAL ONE (08:55)
[2021-06-15] MEDS ORDERED: NEOSTIGMINE METHYLSULFATE 1 MG/ML 10ML VIAL ONE (08:55)
[2021-06-15] MEDS ORDERED: DEXAMETHASONE SOD INJ 4 MG/ML VIAL ONE (08:55)
[2021-06-15] MEDS ORDERED: GLYCOPYRROLATE 0.2 MG/ML VIAL ONE ×2 (08:55→11:00)
[2021-06-15] MEDS ORDERED: PROPOFOL IV EMULSION 10 MG/ML 20 ML VIAL IV ONE (08:55)
[2021-06-15] MEDS ORDERED: fentaNYL citrate 100 MCG/2 ML VIAL ONE (08:56)
[2021-06-15] MEDS ORDERED: MIDAZOLAM HCL 1 MG/ML 2ML VIAL ONE (08:56)
[2021-06-15] MEDS ORDERED: LR 15ML/HR IV SCH (09:15)
--- NOTE | 2021-06-15 09:50 | History & Physical Bridge Note ---
Date of Service June 15, 2021 History & Physical Bridge Note I have examined the patient, reviewed the History & Physical and in the interval since the performance of the History & Physical I have noted the following changes of clinical significance: no changes noted
--- NOTE | 2021-06-15 09:51 | History & Physical Report ---
Date of Service June 15, 2021 Assessment & Plan (1) Lumbosacral radiculopathy at L3: Plan: L3-L4 decompression fusion, L2-L3 hardware removal History of Present Illness Chief Complaint: Back and leg pain Primary Care Provider: Yen Frost MD This is a 75-year-old female who presents with chronic persistent back and leg pain. After failing course of nonoperative care she is here for surgical intervention. Allergies Allergy/AdvReac Type Severity Reaction Status Date / Time ciprofloxacin Allergy Unknown Unknown Verified 06/15/21 09:13 Sulfa (Sulfonamide AdvReac Unknown Back Pain Verified 06/15/21 09:13 Antibiotics) Home Medications Medication Instructions Recorded Confirmed Type ascorbic acid (vitamin C) 500 mg 500 mg PO QAM tab 04/12/19 06/15/21 History tablet cyanocobalamin (vitamin B-12) 1,000 mcg PO QAM tab 05/04/19 06/15/21 History 1,000 mcg tablet garlic 1,000 mg capsule 1,000 mg PO QAM 05/04/19 06/15/21 History glucosamine 750 tj-cjcplk-hrk 2-C 2 tab PO QAM tab 05/04/19 06/15/21 History 30 mg-D3 1,000 unit-carlos 1 mg tablet (Xppyqetdnbw-Vxixybirvia-ITD + vitD) omega-3 fatty acids-fish oil 360 1 cap PO QAM 05/04/19 06/15/21 History mg-1,200 mg capsule (Fish Oil) prednisolone acetate 1 % eye 1 drops OP QAM ml 05/04/19 06/15/21 History drops,suspension famotidine 20 mg tablet 40 mg PO BID tab 11/19/19 06/15/21 History valacyclovir 1 gram tablet 1,000 mg PO .COMPLEX #12 tab 06/04/20 06/15/21 Rx melatonin 5 mg tablet 5 mg PO HS PRN 07/09/20 06/15/21 History alendronate 70 mg tablet (Fosamax) 70 mg PO .COMPLEX tab 11/18/20 06/15/21 History topiramate 100 mg tablet 100 mg PO BID #180 tab 12/23/20 06/15/21 Rx lorazepam 0.5 mg tablet 0.5 mg PO BID PRN #180 tab 03/17/21 06/15/21 Rx acetaminophen 500 mg tablet 1,000 mg PO Q5H PRN tab 03/30/21 06/15/21 History (Tylenol Extra Strength) ibuprofen 200 mg tablet (Motrin IB) 400 mg PO Q6H PRN tab 03/30/21 06/15/21 His tory simvastatin 40 mg tablet 40 mg PO HS #90 tab 05/04/21 06/15/21 Rx rizatriptan 10 mg tablet 10 mg PO .COMPLEX PRN #12 tab MDD 2 05/24/21 06/15/21 Rx lactobacillus combination no.4 3 3,000 mmu cells PO QAM 06/01/21 06/15/21 History billion cell capsule (Probiotic) gabapentin 100 mg capsule 200 mg PO TID #180 cap 06/10/21 06/15/21 Rx lisinopril 2.5 mg tablet 2.5 mg PO QAM #90 tab 06/12/21 06/15/21 Rx Past Med/Surg History Medical History Chronic low back pain GERD (gastroesophageal reflux disease) History of nephrolithiasis Hypercholesterolemia Hypertension Lumbar stenosis Migraines Osteoarthritis Recurrent cold sores Scoliosis Thyroid nodule Under surveillance Surgical History History of back surgery L2-3 decompression/fusion (07/28/20): Grade view 1, MAC#3, ETT 7.0 at [facility] History of cataract surgery Right History of cataract surgery Left History of colonoscopy History of corneal transplant R/L (2016) History of esophagogastroduodenoscopy (EGD) History of hip surgery Right ([place]) History of tooth extraction Family History Mother Pulmonary fibrosis Unknown Headache migraine headaches Cancer Father COPD (chronic obstructive pulmonary disease) Asthma Son Family history of reaction to anesthesia SLOW TO WAKE UP Social History Smoking Status: Former smoker Smoking End Date: Quit 10-15 years ago; Second Hand Exposure: Yes (MOTHER SMOKED/EX SPOUSE USED TO SMOKE); Do You Dip or Chew Tobacco: No; Hx Alcohol Use: Yes Alcohol type: wine Alcohol Intake Frequency Comment: occassionally Hx Substance Use: No Preferred Language: Serbian Communication Ability: Effective Visual Impairment: No Limitations Hearing Ability: Normal Outer Diameter Grinder Required: No Beliefs That Will Affect Care: None marital status: Current Living Situation: Spouse current occupational status: retired Other Information That Helps Us Care for You: No Feels Safe at Home: Yes Safety Concerns: Feels Safe At This Time caffeine: Yes Dental Care, Regularly: Yes Physical Activity Frequency: Does not Exercise Seatbelt Use: always Sunscreen Use: Yes Assistive Devices: Walker Physical Exam Physical Exam: Patient is alert and oriented Heart regular rhythm Lungs clear to auscultation Results & Data ([facility]) Vital Signs (Past 12 Hours) Vital Signs Temp Pulse Resp BP Pulse Ox 06/15/21 09:44 36.8 C 62 20 140/75 97
[2021-06-15] MEDS ORDERED: HYDROmorphone INJ 1 MG/ML SYRINGE IV PRN ×2 (10:01→13:42)
[2021-06-15] MEDS ORDERED: ePHEDrine sulfate 50 MG/ML AMP IV PRN (10:01)
[2021-06-15] MEDS ORDERED: ATROPINE SULFATE 0.1 MG/ML 10ML SYR IV PRN (10:01)
[2021-06-15] MEDS ORDERED: ONDANSETRON INJ 2 MG/ML 2 ML VIAL IV PRN ×2 (10:01→13:42)
[2021-06-15] MEDS ORDERED: EPINEPHrine INJ 1 MG/ML AMP ONE (10:05)
[2021-06-15] MEDS ORDERED: BUPIVACAINE 0.5 % 5 MG/1 ML MPF 30ML VIAL ONE (10:06)
[2021-06-15] MEDS ORDERED: ROCURONIUM BROMIDE 10 MG/ML 5 ML VIAL IV ONE (11:00)
[2021-06-15] MEDS ORDERED: FLOSEAL HEMOSTATIC MATRIX 10ML TOP ONE (11:31)
--- NOTE | 2021-06-15 11:54 | Operative Report ---
Post Operative Report Pre & Post Diagnosis Operation Date: 06/15/21 10:25 Pre-Op Diagnosis: Lumbosacral radiculopathy at L3 Post-Op Diagnosis: Lumbosacral radiculopathy at L3 I identified the patient and participated in the time-out.: Yes Procedure Operation Date: 06/15/21 10:25 Actual Procedures #1 Removal of posterior instrumentation L2-L3. #2 exploration of fusion L2-3. #3 lumbar decompression with bilateral medial facetectomies and foraminotomies L3-L4. #4 posterior spinal fusion L3-L4. #5 placed posterior instrumentation L2-L4. #6 interbody fusion L3-L4. #7 placement peek cage 8 x 22 mm at L3-L4. #8 placement locally harvested morselized autograft in the posterior gutters. #9 placement infuse collagen sponge, and master graft in the posterior lateral gutters and I factor interbody space. Surgeon Yohan Russo, Dust Collector Treater Kanika Sanchez Estimated Blood Loss 100 Findings Consistent with Post-Op Diagnosis Specimens None Indications This is a 75-year-old female well-known to me the presents with worsening chronic lumbar radiculopathy. After failing course of nonoperative care is here for surgical invention. Description of Procedure Patient was met with identified informed consent obtained. Patient was then taken to the operative suite underwent a patient placed in a prone position the [place] table top Perry frame. All bony prominences well-padded eyes inspected to ensure no external pressure placed upon the. This point the lumbar spine was prepped and draped in a sterile fashion. Sharp dissection with the assistance of Bovie cautery performed down to and exposing the instrumentation at L2-L3 and the lamina and transverse processes of L3-L4. I then proceeded to move the hardware at L2-L3 explore the fusion mass noting it to be maturing and intact. Then performed a complete laminectomy of L3 including bilateral medial facetectomies and foraminotomies addressing severe foraminal stenosis. Pedicle screws were then placed in L2-L3-L4 bilaterally with assistance of fluoroscopy and by way of transforaminal portion right complete discectomy at L3-4 was performed endplates curetted to subcortical mean bone and 8 x 22 mm peek cage filled with I factor tapped in position. The proper size rods were then placed locked into final position bilaterally. The transverse processes of L3 and L4 burred to subcortical bleeding bone. Infuse collagen sponge master graft and local autograft was placed in the posterior gutters. 15 round ROSALIND drain inserted. Incision was then closed with 1 Vicryl in the fascia 2-0 Vicryl subcutaneously and 4 Monocryl for final skin closure. Steri-Strip Steri-Strips placed. Patient will continue PACU stable condition. Please note spinal cord monitoring was utilized at the procedure no changes noted. Lastly Kanika Sanchez was present at the entire surgeon while the patient positioning complex portions of the surgery and final skin closure. I attest to the content of the Intraoperative Record and any orders documented therein. Any exceptions are noted below.
[2021-06-15] MEDS: fentaNYL citrate 100 MCG/2 ML VIAL IV PRN ×2 (12:37→12:42)
--- NOTE | 2021-06-15 12:43 | Fluoroscopy Report ---
FL lumbar spine 2-3V CLINICAL HISTORY: Hardware removal. Decompression and fusion. COMPARISON STUDY: Lumbar spine fluoroscopic images July 28, 2020. FLUOROSCOPY TIME: 16 seconds. FLUOROSCOPIC IMAGES: 2 FINDINGS: Exact localization is difficult on this exam given partial visualization of the lumbar spin e. However, 2 level discectomy is noted, likely at the L2-L3 and L3-L4 levels. Posterior decompressio n is noted. There are bilateral pedicle screws, likely at the L2, L3 and L4 levels. Hardware is intac t. IMPRESSION: Fluoroscopy provided during hardware replacement and subsequent decompression and fusion , as described above. ACT 112: Negative or not required by law. Electronically signed by: Carlos Herrera M.D. 06/15/2021 12:42 PM
--- NOTE | 2021-06-15 13:25 | Anesthesiology Progress Note ---
Date of Service June 15, 2021 Anesthesia Post Procedure Vital Signs Vital Signs: Temp Pulse Pulse Resp BP BP Pulse Ox 06/15/21 13:05 36.6 C 63 16 120/64 95 06/15/21 12:55 36.4 C L 72 12 116/64 94 06/15/21 12:45 36.2 C L 58 L 24 115/60 100 06/15/21 12:35 75 12 139/75 100 06/15/21 12:25 84 12 136/69 99 06/15/21 12:16 36.0 C L 102 H 16 159/90 H 98 06/15/21 09:44 36.8 C 62 20 140/75 97 Pain Intensity Back: Pain Intensity: 8 Transfer of Care Handoff Completed per policy Notes Mental Status: alert / awake / arousable and participated in evaluation Patient Amnestic to Procedure: Yes Nausea / Vomiting: adequately controlled Pain: adequately controlled Airway Patency, RR, SpO2: stable & adequate BP & HR: stable & adequate Hydration State: stable & adequate Anesthetic Complications: no major complications apparent and Pt Satisfied with anesthetic care
[2021-06-15] MEDS ORDERED: LORazepam 0.5 MG/1 ML VIAL IV PRN (13:42)
[2021-06-15] MEDS ORDERED: hydrOXYzine HCl 25 MG TAB PO PRN (13:42)
[2021-06-15] MEDS ORDERED: METOCLOPRAMIDE HCL INJ 5 MG/ML 2 ML VIAL IV PRN (13:42)
[2021-06-15] MEDS ORDERED: DO NOT ADMINISTER FLU VACCINE PRN (13:42)
[2021-06-15] MEDS ORDERED: ALUMINUM/MAGNESIUM SUSP 30 ML UDC PO PRN (13:42)
[2021-06-15] MEDS ORDERED: MAGNESIUM HYDROXIDE SUSP 30 ML UDC PO PRN (13:42)
[2021-06-15] MEDS ORDERED: LORazepam 0.5 MG TAB PO PRN ×2 (13:42)
[2021-06-15] MEDS ORDERED: ACETAMINOPHEN HOME PACK 500 MG TABLET PO PRN (13:42)
[2021-06-15] MEDS ORDERED: RIZATRIPTAN BENZOATE 10 MG TAB PO PRN (13:42)
[2021-06-15] MEDS ORDERED: traMADol HCL 50 MG TABLET PO PRN (13:42)
[2021-06-15] MEDS ORDERED: FAMOTIDINE 20 MG TAB PO PRN (13:42)
[2021-06-15] MEDS ORDERED: PROMETHAZINE HCL 12.5 MG in SODIUM CHLORIDE 0.9% 50 ML IV PRN (13:42)
[2021-06-15] MEDS ORDERED: DO NOT ADMINISTER PNEUMOCOCCAL VACCINE PRN (13:42)
[2021-06-15] MEDS ORDERED: ACETAMINOPHEN 500 MG TAB PO PRN (13:42)
[2021-06-15] MEDS ORDERED: ACETAMINOPHEN 1,000 MG/100 ML VIAL IV PRN (13:42)
[2021-06-15] MEDS ORDERED: bisacodyL 10 MG SUPP PR PRN (13:42)
[2021-06-15] MEDS ORDERED: ONDANSETRON 4 MG OD TAB PO PRN (13:42)
[2021-06-15] MEDS ORDERED: diphenhydrAMINE Capsule 25 MG CAP PO PRN (13:42)
[2021-06-15] MEDS ORDERED: MELATONIN 3 MG TAB PO PRN (13:42)
[2021-06-15] MEDS ORDERED: HYDROmorphone INJ 0.5 MG/0.5 ML SYR IV PRN (13:42)
[2021-06-15] MEDS ORDERED: NALOXONE HCL 0.4 MG/1 ML VIAL/CARP IV PRN (13:42)
[2021-06-15] MEDS ORDERED: SOD PHOSPHATE/SOD BIPHOSPHATE ENEMA 132 ML BTL PR PRN (13:42)
[2021-06-15] MEDS: GABAPENTIN 100 MG CAP PO SCH ×2 (15:18→21:42)
[2021-06-15] MEDS: LACTATED RINGER'S 1,000 ML IV SCH ×2 (17:13)
--- NOTE | 2021-06-15 18:19 | Hospitalist Consultation ---
Date of Consultation June 15, 2021 Assessment & Plan (1) Lumbosacral radiculopathy at L3: S/P #1 Removal of posterior instrumentation L2-L3. #2 exploration of fusion L2-3. #3 lumbar decompression with bilateral medial facetectomies and foraminotomies L3-L4. #4 posterior spinal fusion L3-L4. #5 placed posterior instrumentation L2-L4. #6 interbody fusion L3-L4. #7 placement peek cage 8 x 22 mm at L3-L4. #8 placement locally harvested morselized autograft in the posterior gutters. #9 placement infuse collagen sponge, and master graft in the posterior lateral gutters and I factor interbody space. (2) Subclinical hypothyroidism: Not on any thyroid replacement for this. - Monitor (3) Hypertension: BP is 114/73 after surgery. - Continue home lisinopril (4) Hypercholesterolemia: - Continue simvastatin (5) Headache, migraine: No present headache. - Continue amitriptyline & topiramate - Tylenol PRN (6) Recurrent cold sores: ordered valacyclovir and magic mouthwash. (7) Depression: - Continue amitriptyline & topiramate - Continue lorazepam PRN DVT prophylaxis: SCDs - per primary team Miralax to prevent constipation History of Present Illness Reason for Consultation: medical management Attending Physician: Yohan Russo DO History of Present Illness Ms. Guerin is a 74yo F w/ hx of HTN, HLD, and migraine who presents as a routine medical consult. She is doing well after the operation. She is not experiencing much pain at this time, though she has some in her back. Otherwise has no complaints, except for ulcers in her mouth and asking for valacyclovir. She Per the operative note, there were no major complications. Allergies Allergy/AdvReac Type Severity Reaction Status Date / Time ciprofloxacin Allergy Unknown Unknown Verified 06/15/21 09:13 Sulfa (Sulfonamide AdvReac Unknown Back Pain Verified 06/15/21 09:13 Antibiotics) Home Medications Medication Instructions Recorded Confirmed Type ascorbic acid (vitamin C) 500 mg 500 mg PO QAM tab 04/12/19 06/15/21 History tablet cyanocobalamin (vitamin B-12) 1,000 mcg PO QAM tab 05/04/19 06/15/21 History 1,000 mcg tablet garlic 1,000 mg capsule 1,000 mg PO QAM 05/04/19 06/15/21 History glucosamine 750 ev-npprgg-ehi 2-C 2 tab PO QAM tab 05/04/19 06/15/21 History 30 mg-D3 1,000 unit-carlos 1 mg tablet (Sedymrwvbke-Ivculayddww-SPJ + vitD) omega-3 fatty acids-fish oil 360 1 cap PO QAM 05/04/19 06/15/21 History mg-1,200 mg capsule (Fish Oil) prednisolone acetate 1 % eye 1 drops OP QAM ml 05/04/19 06/15/21 History drops,suspension famotidine 20 mg tablet 40 mg PO BID tab 11/19/19 06/15/21 History valacyclovir 1 gram tablet 1,000 mg PO .COMPLEX #12 tab 06/04/20 06/15/21 Rx melatonin 5 mg tablet 5 mg PO HS PRN 07/09/20 06/15/21 History alendronate 70 mg tablet (Fosamax) 70 mg PO .COMPLEX tab 11/18/20 06/15/21 History topiramate 100 mg tablet 100 mg PO BID #180 tab 12/23/20 06/15/21 Rx lorazepam 0.5 mg tablet 0.5 mg PO BID PRN #180 tab 03/17/21 06/15/21 Rx acetaminophen 500 mg tablet 1,000 mg PO Q5H PRN tab 03/30/21 06/15/21 History (Tylenol Extra Strength) ibuprofen 200 mg tablet (Motrin IB) 400 mg PO Q6H PRN tab 03/30/21 06/15/21 History simvastatin 40 mg tablet 40 mg PO HS #90 tab 05/04/21 06/15/21 Rx rizatriptan 10 mg tablet 10 mg PO .COMPLEX PRN #12 tab MDD 2 05/24/21 06/15/21 Rx lactobacillus combination no.4 3 3,000 mmu cells PO QAM 06/01/21 06/15/21 History billion cell capsule (Probiotic) gabapentin 100 mg capsule 200 mg PO TID #180 cap 06/10/21 06/15/21 Rx lisinopril 2.5 mg tablet 2.5 mg PO QAM #90 tab 06/12/21 06/15/21 Rx Patient History Medical History Chronic low back pain GERD (gastroesophageal reflux disease) History of nephrolithiasis Hypercholesterolemia Hypertension Lumbar stenosis Migraines Osteoarthritis Recurrent cold sores Scoliosis Thyroid nodule Under surveillance Surgical History History of back surgery L2-3 decompression/fusion (07/28/20): Grade view 1, MAC#3, ETT 7.0 at [facility] History of cataract surgery Right History of cataract surgery Left History of colonoscopy History of corneal transplant R/L (2016) History of esophagogastroduodenoscopy (EGD) History of hip surgery Right ([place]) History of tooth extraction Family History Mother Pulmonary fibrosis Unknown Headache migraine headaches Cancer Father COPD (chronic obstructive pulmonary disease) Asthma Son Family history of reaction to anesthesia SLOW TO WAKE UP Social History Smoking Status: Former smoker Smoking End Date: Quit 10-15 years ago; Second Hand Exposure: Yes (MOTHER SMOKED/EX SPOUSE USED TO SMOKE); Do You Dip or Chew Tobacco: No; Hx Alcohol Use: Yes Alcohol type: wine Alcohol Intake Frequency Comment: occassionally Hx Substance Use: No Preferred Language: Citizen [place] Communication Ability: Effective Visual Impairment: No Limitations Hearing Ability: Normal Idea Worker Required: No Beliefs That Will Affect Care: None marital status: Current Living Situation: Spouse current occupational status: retired Other Information That Helps Us Care for You: No Feels Safe at Home: Yes Safety Concerns: Feels Safe At This Time caffeine: Yes Dental Care, Regularly: Yes Physical Activity Frequency: Does not Exercise Seatbelt Use: always Sunscreen Use: Yes Assistive Devices: Walker Review of Systems Review of Systems: All systems reviewed & are unremarkable except as noted in HPI & below Physical Exam Physical Exam: Constitutional: WD/WN, vitals as above Eyes: EOM intact bilaterally; no conjunctival abnormality ENMT: external ear and nose normal, oropharynx normal Neck: trachea midline, no thyromegaly normal visual inspection Respiratory: normal respiratory effort, lungs clear to auscultation no respiratory distress Cardiovascular: RRR, no murmur, no edema Gastrointestinal (Abdomen): Inspection/Auscultation: abdomen normal to inspection; abdomen not distended Musculoskeletal: no cyanosis or clubbing, extremities motor strength 5/5 Spine: + thoracic spine abnormal to inspection (Surgical dressing and drain in place) Skin: no rashes, warm and dry Neurologic: moves all extremities and awake Psychiatric: Orientation: alert, oriented to person and cooperative Results & Data Results & Data ([facility]) Vital Signs (Past 12 Hours) Vital Signs Temp Pulse Pulse Resp BP BP Pulse Ox 06/15/21 16:37 100 06/15/21 16:35 36.5 C 65 16 135/72 100 06/15/21 15:22 64 16 138/80 97 06/15/21 14:45 59 L 16 151/83 H 99 06/15/21 14:05 36.3 C L 49 L 16 131/73 98 06/15/21 13:25 36.3 C L 53 L 16 130/76 100 06/15/21 13:05 36.6 C 63 16 120/64 95 06/15/21 12:55 36.4 C L 72 12 116/64 94 06/15/21 12:45 36.2 C L 58 L 24 115/60 100 06/15/21 12:35 75 12 139/75 100 06/15/21 12:25 84 12 136/69 99 06/15/21 12:16 36.0 C L 102 H 16 159/90 H 98 06/15/21 09:44 36.8 C 62 20 140/75 97 PG Care Time/CCT Total # of Minutes Spent Total Time Spent with Patient: Total time spent is greater than 50% in coordination of care (as documented) at patient's floor/unit and/or counseling patient: Coding Level of Care Code 24172 Inpt Consult Level 4 Diagnoses Subclinical hypothyroidism E03.9 Hypertension I10 Hypercholesterolemia E78.00 Headache, migraine G43.909 Depression F32.9 Lumbosacral radiculopathy at L3 M54.17 Recurrent cold sores B00.1
[2021-06-15] MEDS: oxyCODONE HCL IR 5 MG TAB (IMMEDIATE RELEASE) PO PRN (19:27)
[2021-06-15] MEDS: SIMVASTATIN 40 MG TAB PO SCH (21:37)
[2021-06-15] MEDS: ceFAZolin 1000MG 1,000 MG/7.5 ML SYR IV SCH (21:39)
[2021-06-15] MEDS: valACYclovir HCL 500 MG TABLET PO SCH (21:41)
[2021-06-15] MEDS: FAMOTIDINE 40 MG TABLET PO SCH (21:42)
[2021-06-15] MEDS: TOPIRAMATE 100 MG TAB PO SCH (21:42)
[2021-06-15] MEDS: DOCUSATE SODIUM/SENNA 50/8.6MG TAB PO SCH (21:43)
[2021-06-16] MEDS: LACTATED RINGER'S 1,000 ML IV SCH (02:55)
[2021-06-16] MEDS: oxyCODONE HCL IR 5 MG TAB (IMMEDIATE RELEASE) PO PRN ×3 (03:18→14:29)
[2021-06-16] MEDS: ceFAZolin 1000MG 1,000 MG/7.5 ML SYR IV SCH (03:18)
[2021-06-16] MEDS: POLYETHYLENE (MIRALAX) 17 GM PACK PO SCH ×3 (05:15→18:16)
[2021-06-16] MEDS ORDERED: ceFAZolin 1000MG 1,000 MG/7.5 ML SYR IV SCH (06:00)
[2021-06-16] MEDS ORDERED: LR 15ML/HR IV SCH (06:00)
[2021-06-16] MEDS ORDERED: ACETAMINOPHEN 500 MG TAB PO SCH (06:00)
[2021-06-16] MEDS ORDERED: CeleBREX 200 MG CAP PO SCH (06:00)
[2021-06-16] MEDS ORDERED: GABAPENTIN 300 MG CAP PO SCH (06:00)
[2021-06-16 07:40] LABS: Basophils # (auto) 0.02 K/uL (0-0.2); Basophils % (auto) 0.2 %; Eosinophils # (auto) 0.03 K/uL (0-0.5); Eosinophils % (auto) 0.3 %; Hematocrit (blood only) 32.8 % (37-47); Hemoglobin 10.3 g/dL (12.0-16.0); Immature Granulocytes # (auto) 0.02 K/uL (0.00-0.02); Immature Granulocytes % (auto) 0.2 %; Lymphocytes # (auto) 2.21 K/uL (1.2-3.4); Lymphocytes % (auto) 24.4 %; Mean Corpuscular Hemoglobin 30.2 pg (25-34); Mean Corpuscular Hgb Conc 31.4 g/dL (32-36); Mean Corpuscular Volume 96.2 fL (80-100); Mean Platelet Volume 10.5 fL (7.4-10.4); Monocytes # (auto) 1.02 K/uL (0.11-0.59); Monocytes % (auto) 11.3 %; Neutrophils # (auto) 5.74 K/uL (1.4-6.5); Neutrophils % (auto) 63.6 %; Platelet Count 239 K/uL (130-400); RDW Coefficient of Variation 14.3 % (11.5-14.5); Red Blood Count 3.41 M/uL (4.2-5.4); White Blood Count 9.04 K/uL (4.8-10.8)
[2021-06-16 08:13] LABS: Est GFR (African American) 98.2 ml/min; Est GFR (Non-African American) 84.8 ml/min; Potassium 4.1 mmol/L (3.5-5.1)
[2021-06-16 08:14] LABS: BUN Creatinine Ratio 17.6 (10-20)
[2021-06-16] MEDS: GABAPENTIN 100 MG CAP PO SCH ×3 (08:42→20:15)
[2021-06-16] MEDS: FAMOTIDINE 40 MG TABLET PO SCH ×2 (08:42→20:16)
[2021-06-16] MEDS: TOPIRAMATE 100 MG TAB PO SCH ×2 (08:42→20:15)
[2021-06-16] MEDS: ASCORBIC ACID 500 MG TAB PO SCH (08:43)
[2021-06-16] MEDS: ADVANCED PROBIOTIC 1250 MG CAPSULE PO SCH (08:43)
[2021-06-16] MEDS: valACYclovir HCL 500 MG TABLET PO SCH (08:43)
[2021-06-16] MEDS: CYANOCOBALAMIN 500 MCG TABLET (VITAMIN B-12) PO SCH (08:44)
[2021-06-16] MEDS: prednisoLONE acetate 1% OP SUSP 5 ML BTL OP SCH (08:44)
[2021-06-16] MEDS ORDERED: prednisoLONE acetate 1% OP SUSP 5 ML BTL OP SCH (09:00)
--- NOTE | 2021-06-16 10:55 | Orthopedic Progress Note ---
Date of Service June 16, 2021 Assessment & Plan (1) Neurogenic claudication due to lumbar spinal stenosis: Plan: We will continue physical therapy monitor ROSALIND operatively discharge home tomorrow. Admission and Anticipated Discharge Date Admission Date: June 15, 2021 Subjective Back pain controlled still some residual right anterior thigh pain but tolerated therapy well. Physical Exam Physical Exam: Patient is in the chair at the bedside. She appears relatively comfortable. Is good strength testing. Results & Data ([facility]) Vital Signs (Past 12 Hours) Vital Signs Temp Pulse Resp BP BP Pulse Ox 06/16/21 07:07 36.7 C 64 16 112/64 97 06/16/21 02:54 36.7 C 58 L 16 106/64 96
[2021-06-16] MEDS: lisinopril 2.5 MG TAB PO SCH (10:59)
[2021-06-16] MEDS ORDERED: MAGNESIUM HYDROXIDE SUSP 30 ML UDC PO ONE (12:00)
[2021-06-16] MEDS: DOCUSATE SODIUM/SENNA 50/8.6MG TAB PO SCH (20:16)
[2021-06-16] MEDS: SIMVASTATIN 40 MG TAB PO SCH (20:18)
[2021-06-17] MEDS: POLYETHYLENE (MIRALAX) 17 GM PACK PO SCH ×3 (06:34→13:08)
[2021-06-17] MEDS: oxyCODONE HCL IR 5 MG TAB (IMMEDIATE RELEASE) PO PRN ×2 (07:38→13:08)
[2021-06-17] MEDS: ASCORBIC ACID 500 MG TAB PO SCH (07:39)
[2021-06-17] MEDS: CYANOCOBALAMIN 500 MCG TABLET (VITAMIN B-12) PO SCH (07:39)
[2021-06-17] MEDS: ADVANCED PROBIOTIC 1250 MG CAPSULE PO SCH (07:39)
[2021-06-17] MEDS: FAMOTIDINE 40 MG TABLET PO SCH (07:40)
[2021-06-17] MEDS: lisinopril 2.5 MG TAB PO SCH (07:40)
[2021-06-17] MEDS: GABAPENTIN 100 MG CAP PO SCH ×2 (07:41→14:32)
[2021-06-17] MEDS: TOPIRAMATE 100 MG TAB PO SCH (07:41)
[2021-06-17] MEDS: prednisoLONE acetate 1% OP SUSP 5 ML BTL OP SCH (07:42)
[2021-06-17] MEDS ORDERED: dexAMETHasone 8 MG in SYRINGE 0 ML IV SCH (09:00)
--- NOTE | 2021-06-17 11:54 | Discharge Summary ---
Date of Service June 17, 2021 Admission HPI Per Admitting Provider This is a 75-year-old female who presents with chronic persistent back and leg pain. After failing course of nonoperative care she is here for surgical intervention. Principal Diagnosis Lumbar spinal stenosis with radiculopathy Discharge Data Allergies Allergy/AdvReac Type Severity Reaction Status Date / Time ciprofloxacin Allergy Unknown Unknown Verified 06/15/21 09:13 Sulfa (Sulfonamide AdvReac Unknown Back Pain Verified 06/15/21 09:13 Antibiotics) Consultations 06/15/21 13:42 Consult Hospitalist Routine Procedures Performed Operation Date: 06/15/21 10:25 Actual Procedures p L3-L4 Decomrpession Fusion, L2-L3 Hardware Removal, Spinal Cord Monitoring(Not Applicable) - Yohan Russo DO Ordered Studies 06/15/21 09:30 [place] lumbar spine 2-3V Routine Hospital Course (1) Neurogenic claudication due to lumbar spinal stenosis: Patient 1 lumbar decompression fusion [place] posting orthopedic for postop labor postop day 1 she was up mainly brace postop day #2. Back pain is controlled leg pain improved excellent strength testing ROSALIND drain decreasing probably. Pain well controlled. Subsequent discharge home. Discharge orders instructions from the chart for further review. Total Time Total Time Spent Total Time Spent (In Minutes): 20 minutes Discharge Plan Discharge Items Patient Disposition: Home - Self-Care Reason For Visit: z01.818,Spinal Stenosis, Lumbar Region w/o Neuroge Discharge Diagnosis: Lumbar spinal stenosis with radiculopathy Activity: As commented below Non-emergency contact: Primary Care Provider Call non-emergency contact if: you have any medication questions Follow-up/Referrals: Yen Frost MD [Primary Care Provider] - Diet: Regular Addtl Attending Provider Instructions: ACTIVITY RECOMMENDATIONS: SELF CARE INSTRUCTIONS AFTER THORACIC/LUMBAR FUSIONS 1. You may walk to your tolerance. It is good exercise for your legs and back. Expect some back and intermittent leg aches and pains. 2. You may perform "counter-top" level activities (make a sandwich, kasey with a project, etc.). 3. No bending or lifting of more than 10 pounds or back twisting of any nature (roll like a log when turning in bed). 4. You may ride in a car for 20-30 minutes at a time. No driving until after your first visit with your doctor. 5. Frequent changes of position and restricting sitting to 30 minutes at a time will help limit the amount of back spasms and stiffness you may experience. 6. You may discontinue the use of ambulatory aids (cane, crutches, etc.) once your strength and confidence allow. 7. You may field ring assembler the shower and let water strike your incision when you arrive home at least once daily. Do not take a tub bath, sit in a hot tub or go into a swimming pool until after your first recheck in the office. SPECIAL CARE INSTRUCTIONS: VERY IMPORTANT TO READ AND REVIEW A. Your surgical incision has been closed with a cosmetic suture under the skin that will dissolve in about 6 weeks. In 14 days, you can use a pair of clean scissors and cut the suture that is left outside of the skin at the ends of your incision. 1. The small skin tapes can be removed 7 days after surgery if they have not fallen off by that point. 2. You may keep the wound open to air as much as possible to promote healing after post-op day number 5 unless told otherwise by your doctor. 3. If you think the wound looks like it is becoming infected (redness or worsening drainage) and/or you are experiencing fever, chill or worsening back pain and muscle spasms, contact the office so that we may evaluate you as soon as possible. B. Complications are uncommon, but please contact us if you have any signs or symptoms of: 1. wound infection (fever higher than 102.5 degrees F, redness, separation of wound, drainage, or increasing pain from the incision) 2. blood clots in legs (pain, swelling, redness and warmth in legs) 3. urinary tract infection (fever higher than 102.5 degrees F, burning upon urination or increased frequency of urination) 4. nerve problems (inability to walk on your toes or heels, numbness, loss of bowel or bladder control) 5. any other symptoms that concern you C. Please call the office at if you have any concerns or questions about your operation or recovery. D. No smoking! Smoking drastically decreases the chance of a solid fusion. E. Do not take any anti-inflammatory medications (Indocin, Advil, Motrin, Aspirin, Naprosyn, etc.) as these may inhibit the chance of a solid fusion. Tylenol is okay to take for pain. MANAGING PAIN AFTER SPINAL SURGERY 1. Narcotic medication is intended for short-term use and will be provided for surgical pain. Surgical pain usually lasts for a period of 4-6 weeks. Narcotic medication includes Percocet, Vicodin, Darvocet, Tylenol #3 or Lortab. 2. Longer-term pain is more appropriately treated with non-narcotic medication such as Tylenol ES. 3. Muscle spasm is not appropriately treated with narcotics. Muscle relaxers such as Soma, Flexeril or Skelaxin can be used along with Tylenol ES. 4. Remember that we all live with some "aches and pains". This is not unusual or uncommon after an injury or as we get older. a. Back pain is expected and may include muscle spasms for 4 to 6 weeks after surgery. The pain should gradually improve. If the pain worsens for no apparent reason, please contact the office. b. Intermittent leg pain may also be experienced and should not be concerned about unless it worsens for no apparent reason. If so, please contact the office. 5. We will provide appropriate medication within the normal guidelines of their prescribed use. We will also be very cautious and aware of potential abuse and extended duration of patients' medication needs. a. Pain medications are for your comfort and to assist with sleep and rest so that the tissue can heal. They are not provided in order to return to normal activity and should not be used through the day. To do so or worsening pain at night can result from ongoing tissue damage and development of tolerance to the prescribed medicine. 6. Please allow 2-3 days to process refills. Prescriptions will not be mailed but must be picked up at the office. FOLLOW UP VISIT: Keep your scheduled follow-up appointment. Any questions, please call the office at . Pending Studies at Discharge: No Stand-Alone Forms: My [facility], Opioid Pain Management, Smoking Cessation Medications and DC Order Prescriptions: New tramadol 50 mg tablet 50 mg PO Q6H PRN (Reason: pain, moderate) Qty: 30 RF: 0 oxycodone 5 mg tablet 5 mg PO Q6H PRN (Reason: pain, severe) Qty: 30 RF: 0 Continued valacyclovir 1 gram tablet 1,000 mg PO .COMPLEX Qty: 12 RF: 3 topiramate 100 mg tablet 100 mg PO BID Qty: 180 RF: 3 lorazepam 0.5 mg tablet 0.5 mg PO BID PRN (Reason: anxiety) Qty: 180 RF: 0 acetaminophen [Tylenol Extra Strength] 500 mg tablet 1,000 mg PO Q5H PRN (Reason: Pain) RF: 0 ibuprofen [Motrin IB] 200 mg tablet 400 mg PO Q6H PRN (Reason: Pain) RF: 0 simvastatin 40 mg tablet 40 mg PO HS Qty: 90 RF: 1 Hold Instructions: pain rizatriptan 10 mg tablet 10 mg PO .COMPLEX MDD 2 PRN (Reason: migraine headache) Qty: 12 RF: 1 gabapentin 100 mg capsule 200 mg PO TID Qty: 180 RF: 2 lisinopril 2.5 mg tablet 2.5 mg PO QAM Qty: 90 RF: 1 ascorbic acid (vitamin C) 500 mg tablet 500 mg PO QAM RF: 0 prednisolone acetate 1 % drops,suspension 1 drops OP QAM RF: 0 famotidine 20 mg tablet 40 mg PO BID RF: 0 alendronate [Fosamax] 70 mg tablet 70 mg PO .COMPLEX RF: 0 garlic 1,000 mg capsule 1,000 mg PO QAM RF: 0 cyanocobalamin (vitamin B-12) 1,000 mcg tablet 1,000 mcg PO QAM RF: 0 omega-3 fatty acids-fish oil [Fish Oil] 360-1,200 mg capsule 1 cap PO QAM RF: 0 Uyztivvj-Evjzpk-VLO with vit D 750-30-1,000-1 hg-we-nzgt-mg tablet 2 tab PO QAM RF: 0 melatonin 5 mg Tablet 5 mg PO HS PRN (Reason: Insomnia) RF: 0 Probiotic 3 billion cell Capsule 3,000 mmu cells PO QAM RF: 0 Discharge Orders: Discharge Order (Routine); Ordered 06/17/21 Ordered By: Yohan Russo Admission Data Admit Date/Time: 06/15/21 11:58 Attending Provider: Yohan Russo Admit Provider: Yohan Russo Primary Care Provider: Yen Frost Other Interventions: Discharge Summary Assessment (RN) Last Done: 06/17/21 09:48
== END 2021-06-17 15:45 | disposition home or self-care (01) | DRG 455 ==
LOC: ASU 08:48 → 3E 11:58